=== PATIENT | male | born 1965 | race Caucasian/White ===

== ENCOUNTER 2017-05-10 12:05 | Inpatient (IN) | payer OTHER, MEDICARE ==
[~2017-05-10] VITALS: Ht 182.9 cm; Wt 177.8 kg
[~2017-05-10 12:05] MED LIST: ADVAIR 250-501 EACH INH; ASPIRIN81 M4 PO; ATORVASTATIN CA80 M1 PO; ATROVENT15 ML NASB; AUGMENTIN 875-1 EACH PO; BACTRIM DS TAB1 EACH PO; DELTASONE20 MG PO; GLUCOPHAGE1000 M1 PO; KLOR-CON 1010 ME1 PO; LANTUS SOL100 UNIT/1 SQ; LASIX20 M1 PO; LASIX40 M1 PO; NOVOLOG100 UNIT/2 SQ; PERCOCET 5-3251 EACH PO; PRINIVIL20 M1 PO; PROAIR HFA8.5 GM INH; SERTRALINE HCL50 MG PO
--- NOTE | 2017-05-10 12:55 | ED GENERAL ADULT ---
History of Present Illness General Chief Complaint: Lower Extremity Problems Stated Complaint: DIABETES, RIGHT FOOT/BIG TOE SWELLING/DECAY Source: patient Exam Limitations: no limitations Vital Signs & Intake/Output Vital Signs & Intake/Output Vital Signs Date Time Temp Pulse Resp B/P B/P Pulse O2 O2 Flow FiO2 Mean Ox Delivery Rate 05/13 0655 98.0 70 20 112/62 95 Room Air 05/12 2202 98.5 62 20 116/60 97 05/12 1458 98.3 68 20 108/60 95 Room Air ED Intake and Output 05/13 0000 05/12 1200 Intake Total 1100 1000 Output Total 2250 1100 Balance -1150 -100 Intake, IV 200 400 Intake, Oral 900 600 Number 1 Bowel Movements Output, Urine 2250 1100 Allergies Coded Allergies: No Known Allergies (05/10/17) Reconcile Medications Aspirin (Aspirin*) 81 MG TAB.CHEW 1 TAB PO DAILY HEART HEALTH (Reported) Atorvastatin Calcium 80 MG TABLET 1 TAB PO DAILY CHOLESTEROL (Reported) Fluticasone/Salmeterol (Advair 250-50 Diskus) 1 EACH BLST.W.DEV 1 PUF INH BID BREATHING PROBLEMS (Reported) Furosemide (Lasix) 40 MG TABLET 1 TAB PO DAILY WATER PILL (Reported) Insulin Glargine,Hum.rec.anlog (Lantus Solostar) 100 UNIT/ML (3 ML) INSULN.PEN 50 UNITS SQ Q12 DIABETES Lisinopril (Prinivil) 20 MG TABLET 1 TAB PO DAILY HEART (Reported) Metformin HCl (Glucophage) 1,000 MG TABLET 1 TAB PO BID DIABETES (Reported) Potassium Chloride (Klor-Con 10) 10 MEQ TABLET.ER 1 TAB PO DAILY SUPPLEMENT ( Reported) Sertraline HCl 50 MG TABLET 1 TAB PO DAILY MENTAL HEALTH (Reported) Triage Note: PT TO ED FOR C/C OF R GREAT TOE PAIN, DRAINAGE AND "FALLING APART." PT WAS SEEN AND ADMITTED AND LEFT AMA FROM [facility] YESTERDAY. PT CALLED DR. PALOMINO' OFFICE WHO TOLD HIM TO COME TO [facility]. DRAINAGE NOTED THROUGH SOCK IN TRIAGE, BUT PT DOES NOT WANT TO TAKE SOCK OFF IN TRIAGE. 103 FEVER LAST NIGHT, AND HIGH BLOOD SUGARS. PT REPORTS SYMPTOMS HAVE BEEN X 1 WEEK. Triage Nurses Notes Reviewed? yes Onset: Abrupt Duration: week(s): (1), constant, continues in ED, getting worse Timing: single episode today Injury Environment: home Severity: moderate, severe Severity Numbers: 7 No Modifying Factors: none Modifying Factors: Worsens With: movement. HPI: 51-year-old male past medical history of poorly controlled diabetes, hypertension, COPD, CHF, sleep apnea presents for evaluation of pain swelling to his right great toe. Patient states that he first noticed symptoms about one week ago. He states that the toe appears to be "rotting". He denies any trauma or known triggering events. He says that he went to [facility] yesterday where they attempted to admit him but he left AMA. He does state that he receive some antibiotics. He denies any chest pain shortness of breath or vomiting diarrhea. He does have numbness and tingling in his toes bilaterally. He denies any history of peripheral vascular disease. He does report that he had a fever of 103 last night. He is not taking any medicine for pain. Pain is worse with movement but he is able to walk. He reports redness and swelling spreading up the right lower extremity. (Mka Wu) Past History Travel History Traveled to [place] past 21 day No Medical History Any Pertinent Medical History? 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 hip, plate in head. Psychosocial History Who do you live with Patient/Self Services at Home None What is your primary language Hebrew Family History Family History, If Any: SON (The patient reports to have grown up in foster care. He was never adopted and does not know his family. He gets very upset when asked about family history.He has no family history). Relation not specified for: *No pertinent family history Hx Contributory? No (Mak Wu) Review of Systems Review of Systems Constitutional: Reports: no symptoms. EENTM: Reports: no symptoms. Respiratory: Reports: no symptoms. Cardiovascular: Reports: no symptoms. GI: Reports: no symptoms. Genitourinary: Reports: no symptoms. Musculoskeletal: Reports: see HPI, joint pain, joint swelling. Skin: Reports: see HPI, erythema, lesions. Neurological/Psychological: Reports: numbness, tingling. Hematologic/Endocrine: Reports: no symptoms. Immunologic/Allergic: Reports: no symptoms. All Other Systems: Reviewed and Negative (Mak Wu) Physical Exam Physical Exam General Appearance: well developed/nourished, no apparent distress, alert, awake , obese Head: atraumatic, normal appearance Eyes: Bilateral: normal appearance, PERRL, EOMI. Ears, Nose, Throat: normal pharynx, normal ENT inspection, hearing grossly normal Neck: normal inspection, supple, full range of motion Respiratory: normal breath sounds, chest non-tender, no respiratory distress, lungs clear Cardiovascular: regular rate/rhythm, normal peripheral pulses Peripheral Pulses: 2+ radial (R), 2+ radial (L) Gastrointestinal: normal bowel sounds, soft, non-tender, no organomegaly Back: normal inspection, normal range of motion, no vertebral tenderness Extremities: the right great toe is diffusely swollen and macerated. There is a large ulcerated lesion on the plantar aspect. There is surrounding erythema and diffuse soft tissue swelling of the foot. The erythema extends up the foot and into the lower leg. There is calf swelling and tenderness. Patient is able to move the toe. Sensory supply appears lost to the great toe and other toes. Cap refill less than 2 seconds. Neurologic/Psych: no motor/sensory deficits, awake, alert, oriented x 3, normal gait Skin: intact, normal color, warm/dry Lymphatic: no anterior cervical chuyita Core Measures ACS in differential dx? No CVA/TIA Diagnosis: No Sepsis Present: No Sepsis Focused Exam Completed? No (Mak Wu) Progress Differential Diagnoses I considered the following diagnoses in my evaluation of the patient: Plan of Care: Current Medications Sig/Wally Start time Last Medication Dose Stop Time Status Admin Furosemide 40 MG DAILY 05/13 1000 AC (Lasix) Insulin Detemir 3 UNITS BID 05/12 1000 AC 05/12 (Levemir) 211 Atorvastatin Calcium 80 MG 1700 05/11 1700 AC 05/12 (Lipitor) 1812 Insulin Aspart 0 TIDAC 05/11 1700 AC 05/13 (NovoLOG) 0824 Acetaminophen 650 MG Q4P PRN 05/11 1315 AC 05/12 (Tylenol) 211 Lisinopril 20 MG DAILY 05/11 1000 AC 05/12 (Prinivil) 0751 Sertraline HCl 50 MG DAILY 05/11 1000 AC 05/12 (Zoloft) 075 Budesonide/ 2 PUF BID 05/10 Formoterol Fumarate 2111 (Symbicort) Heparin Sodium 5,000 UNIT Q8 05/10 2199 AC 05/13 (Porcine) 0545 Dextrose/Sodium 1,000 ML Q20H 05/10 19405/12 Chloride 2335 (D5-Normal Saline) Aspirin 81 MG DAILY 05/10 1928 AC 05/12 (Aspirin) 075 Ampicillin Sodium/ 3,000 MG Q6 05/10 190 AC 05/13 Sulbactam Sodium 0546 (Unasyn) Sodium Chloride 100 ML (Normal Saline 0.9%) Laboratory Tests 05/12/17 0908: CBC w Diff NO MAN DIFF REQ, RBC 3.94 L, MCV 89.6, MCH 30.8, MCHC 34.4, RDW 13.4 , MPV 10.1, Gran % 55.7, Lymphocytes % 33.6, Monocytes % 6.2, Eosinophils % 3.5, Basophils % 1.0, Absolute Granulocytes 2.8, Absolute Lymphocytes 1.7, Absolute Monocytes 0.3, Absolute Eosinophils 0.2, Absolute Basophils 0.1 Patient seen and evaluated. He has a ulcerated lesion on his right lower extremity with surrounding erythema and soft tissue swelling. The erythema tracks up the leg. He has an elevated white blood cell counts elevated sedimentation rate and CRP. Spoke with Dr. Dee. He recommends getting an MRI and that admitting to the OR tomorrow. He recommends covering with antibiotics now. Patient was given Unasyn after cultures. MRI ordered. Patient was also given IV fluids due to mildly elevated lactic acid and elevated blood sugar. Also patient was given a dose of Unasyn for his elevated blood sugar. He has a negative anion gap. MRI shows evidence of osteomyelitis the distal aspect of the right first digit. Patient will go to the OR tomorrow with Dr. Dee. He'll be nothing by mouth after midnight. Patient required admission for IV antibiotics, IV fluids, serial labs, podiatry, case management, endocrine, bone biopsy/debridement. Case discussed with Dr. Borges she agrees. Diagnostic Imaging: Viewed by Me: Radiology Read, Ultrasound. Discussed w/RAD: Radiology Read, Ultrasound. Radiology Impression: PATIENT: JODY KAPADIA PRESENT AGE: 51 PATIENT ACCOUNT NO: [id number] : 65 LOCATION: [facility] ORDERING PHYSICIAN: Mak FALL SERVICE DATE: 05/10/17 EXAM TYPE: MRI - MRI-RT FOOT W/O GABI EXAMINATION: MRI FOOT WITHOUT CONTRAST, RIGHT CLINICAL INFORMATION: Right great toe ulcer. COMPARISON: Same day radiographs. TECHNIQUE: MRI without contrast is performed on the right forefoot. FINDINGS: There is a soft tissue defect along the plantar aspect of the distal great toe with underlying edema compatible with cellulitis. No abscess. The 1st distal phalanx is diffusely edematous. Fatty marrow is predominately preserved suggesting this is reactive marrow edema, with the exception of focal low signal and irregularity at the plantar aspect of the tuft likely representing a relatively small focus of osteomyelitis. There is a 1st MTP joint effusion and mild hallux sesamoid osteoarthritis. Moderate arthritic changes throughout the midfoot. There is extensive subcutaneous edema throughout the dorsum of the foot. There is edema throughout the intrinsic muscles of the foot likely representing denervation change, not uncommon in diabetic patients. IMPRESSION: The 1st distal phalanx is diffusely edematous, the majority of which is likely reactive. Osteomyelitis is suspected at the plantar aspect of the tuft. DICTATED BY: Gen Joy MD DATE/TIME DICTATED:05/10/171557 SUMMER INTERN: DUNCAN DATE/TIME TRANSCRIBED:05/10/171557 CONFIDENTIAL, DO NOT COPY WITHOUT APPROPRIATE AUTHORIZATION. <Electronically signed in Other Vendor System> SIGNED BY: Gen Joy MD 05/10/178, PATIENT: JODY KAPADIA PRESENT AGE: 51 PATIENT ACCOUNT NO: [id number] : 65 LOCATION: [facility] ORDERING PHYSICIAN: Mak FALL SERVICE DATE: 05/10/17 EXAM TYPE: US - US-DUPLEX VENOUS EXTREM UNI EXAMINATION: US TRIPLEX LOWER EXTREMITY, RIGHT CLINICAL INFORMATION: History of DVT with right lower extremity pain, discoloration, swelling and tenderness. COMPARISON: None TECHNIQUE: Color-flow triplex imaging with spectral analysis and compression Doppler were performed on the lower extremity. FINDINGS: Respiratory variation, normal compression and augmented flow are noted throughout the lower extremity. The visualized common femoral vein, superficial femoral vein, profunda femoral vein and popliteal vein show no evidence of deep venous thrombosis. Calf veins could not be visualized. There is no La's cyst. Multiple groin nodes are present the largest of which measure 1.5 x 2.9 x 0.7 cm and 2.3 x 3.6 x 1.0 cm. IMPRESSION: No evidence of deep venous thrombosis involving the lower extremity from the popliteal vein upwards. DICTATED BY: Julio Waters MD DATE/TIME DICTATED:05/10/171551 SUMMER INTERN:DUNCAN DATE/TIME TRANSCRIBED:05/10/171551 CONFIDENTIAL, DO NOT COPY WITHOUT APPROPRIATE AUTHORIZATION. <Electronically signed in Other Vendor System> SIGNED BY: Julio Waters MD 05/10/171635, PATIENT: JODY KAPADIA PRESENT AGE: 51 PATIENT ACCOUNT NO: [id number] : 65 LOCATION: [facility] ORDERING PHYSICIAN: Mak FALL SERVICE DATE: 05/10/17 EXAM TYPE: RAD - XRY-FOOT COMPLETE, R EXAMINATION: XR FOOT, RIGHT CLINICAL INFORMATION: Right great toe pain. Swelling. Ulceration lesion. COMPARISON: None TECHNIQUE: AP, lateral, and oblique views of the right foot. FINDINGS: Bones are osteopenic. There is soft tissue swelling of the great toe with a associated laceration. Underlying bone appears unremarkable. No discrete foci of osteolysis are identified indicate acute osteomyelitis. There is mild multifocal degenerative arthritis in the midfoot and in the interphalangeal joints. Small enthesopathic spurs are present at the Achilles tendon insertion and plantar fascial origin on the calcaneus. Soft tissues are diffusely swollen and edematous in the foot. IMPRESSION: Soft tissue swelling and ulceration of the great toe. No radiographic findings of underlying osteomyelitis. Consider correlation with MRI of the foot with and without contrast for additional sensitivity and specificity if warranted. DICTATED BY: Rory Trevizo MD DATE/ TIME DICTATED:05/10/171406 SUMMER INTERN:DUNCAN DATE/TIME TRANSCRIBED: 05/10/171406 CONFIDENTIAL, DO NOT COPY WITHOUT APPROPRIATE AUTHORIZATION. < Electronically signed in Other Vendor System> Initial ED EKG: normal sinus rhythm, NON-SPECIFIC INTRAVENTRICULAR CONDUNCTION DELAY, BORDERLINE INFERIOR Q WAVES Prior EKG: unchanged (Mak Wu) Departure Departure Disposition: STILL A PATIENT Condition: Stable Clinical Impression Primary Impression: Osteomyelitis Qualifiers: Osteomyelitis type: unspecified type Osteomyelitis location: foot Laterality: right Qualified Code: M86.9 - Osteomyelitis, unspecified Referrals: Nayeli ADAMS,Raleigh Duncan (PCP/Family) Departure Forms: Customer Survey General Discharge Information Admission Note Spoke With: Leslie ADAMS,Bettina Orlando Documentation of Exam: Documentation of any treatments & extenuating circumstances including Concerns Regarding Discharge (functional status, medication knowledge or non-compliance, living conditions, etc.) that warrant an admission rather than observation: IV antibiotics, IV fluids, serial labs, podiatry, case management, endocrine, bone biopsy/debridement] (aMk Wu) PA/VIDEO EFFECTS EDITOR Co-Sign Statement Statement: ED Attending supervision documentation- [X] I saw and evaluated the patient. I have also reviewed all the pertinent lab results and diagnostic results. I agree with the findings and the plan of care as documented in the PA's/VIDEO EFFECTS EDITOR's documentation. [X] I have reviewed the ED Record and agree with the PA's/VIDEO EFFECTS EDITOR's documentation. [] Additions or exceptions (if any) to the PAs/VIDEO EFFECTS EDITOR's note and plan are summarized below: [] (Katerina ADAMS,Massiel) Critical Care Note Critical Care Note Critical Care Time: non-applicable (Mak Wu)
[2017-05-10 13:13] LABS: ABSOLUTE BASOPHIL COUNT 0 /CUMM (0.0-0.2); ABSOLUTE EOSINOPHIL COUNT 0.2 /CUMM (0.0-0.7); ABSOLUTE GRANULOCYTE CT 8.7 /CUMM (1.4-6.5); ABSOLUTE MONOCYTE COUNT 0.6 /CUMM (0.10-0.60); BASOPHIL % 0.2 % (0.0-2.0); EOSINOPHIL % 1.7 % (0-5); GRANULOCYTE % 75.6 % (42.2-75.2); HEMATOCRIT 40.7 % (42-52); MEAN CORPUSCULAR HGB 30.8 PG (27.0-31.0); MEAN CORPUSCULAR HGB CONC 33.6 G/DL (33.0-37.0); MEAN CORPUSCULAR VOLUME 91.6 FL (80.0-94.0); MEAN PLATELET VOLUME 10.4 FL (7.4-10.4); PLATELET COUNT 181 /CUMM (130-400); RBC DISTRIBUTION WIDTH 13.5 % (11.5-14.5); RED BLOOD CELL CT 4.44 /CUMM (4.70-6.10); WHITE BLOOD CELL COUNT 11.5 /CUMM (4.8-10.8)
--- NOTE | 2017-05-10 14:12 | RADIOLOGY REPORT ---
EXAMINATION: XR FOOT, RIGHT CLINICAL INFORMATION: Right great toe pain. Swelling. Ulceration lesion. COMPARISON: None TECHNIQUE: AP, lateral, and oblique views of the right foot. FINDINGS: Bones are osteopenic. There is soft tissue swelling of the great toe with a associated laceration. Underlying bone appears unremarkable. No discrete foci of osteolysis are identified indicate acute osteomyelitis. There is mild multifocal degenerative arthritis in the midfoot and in the interphalangeal joints. Small enthesopathic spurs are present at the Achilles tendon insertion and plantar fascial origin on the calcaneus. Soft tissues are diffusely swollen and edematous in the foot. IMPRESSION: Soft tissue swelling and ulceration of the great toe. No radiographic findings of underlying osteomyelitis. Consider correlation with MRI of the foot with and without contrast for additional sensitivity and specificity if warranted.
--- NOTE | 2017-05-10 16:36 | ULTRASOUND REPORT ---
EXAMINATION: US TRIPLEX LOWER EXTREMITY, RIGHT CLINICAL INFORMATION: History of DVT with right lower extremity pain, discoloration, swelling and tenderness. COMPARISON: None TECHNIQUE: Color-flow triplex imaging with spectral analysis and compression Doppler were performed on the lower extremity. FINDINGS: Respiratory variation, normal compression and augmented flow are noted throughout the lower extremity. The visualized common femoral vein, superficial femoral vein, profunda femoral vein and popliteal vein show no evidence of deep venous thrombosis. Calf veins could not be visualized. There is no La's cyst. Multiple groin nodes are present the largest of which measure 1.5 x 2.9 x 0.7 cm and 2.3 x 3.6 x 1.0 cm. IMPRESSION: No evidence of deep venous thrombosis involving the lower extremity from the popliteal vein upwards.
--- NOTE | 2017-05-10 16:48 | MRI REPORT ---
EXAMINATION: MRI FOOT WITHOUT CONTRAST, RIGHT CLINICAL INFORMATION: Right great toe ulcer. COMPARISON: Same day radiographs. TECHNIQUE: MRI without contrast is performed on the right forefoot. FINDINGS: There is a soft tissue defect along the plantar aspect of the distal great toe with underlying edema compatible with cellulitis. No abscess. The 1st distal phalanx is diffusely edematous. Fatty marrow is predominately preserved suggesting this is reactive marrow edema, with the exception of focal low signal and irregularity at the plantar aspect of the tuft likely representing a relatively small focus of osteomyelitis. There is a 1st MTP joint effusion and mild hallux sesamoid osteoarthritis. Moderate arthritic changes throughout the midfoot. There is extensive subcutaneous edema throughout the dorsum of the foot. There is edema throughout the intrinsic muscles of the foot likely representing denervation change, not uncommon in diabetic patients. IMPRESSION: The 1st distal phalanx is diffusely edematous, the majority of which is likely reactive. Osteomyelitis is suspected at the plantar aspect of the tuft.
--- NOTE | 2017-05-10 17:06 | History & Physical ---
See Addendum Tiffany Layne MD 05/10/17 5156: General Information and HPI MD Statement: I have seen and personally examined JODY KAPADIA and documented this H&P. The patient is a 51 year old M who presented with a patient stated chief complaint of [right great toe swelling and pain]. Source of Information: patient Exam Limitations: no limitations History of Present Illness: 51-year-old male with past medical history of COPD, hypertension, traumatic brain injury, diabetes, congestive heart failure, obstructive sleep apnea on CPAP came for a and swelling of his great toe swelling for the past 1 week. Patient was in usual state of health until a week ago, found to have swelling of his right great toe with no pain. 2 days ago patient felt moderate to severe pain in his right great toe. Patient went to [facility] for the same but due to increased wake time in the emergency room he left at his medical advice. Not sure if he received any antibiotics during the ER visit. Today patient continued having pain in his right great toe and eventually decided to come to the emergency room. During the time of interview he was irritated that he was frequently interviewed regarding his current situation. He denies trauma to his legs, numbness, tingling sensation, decreased sensation, bilateral leg pain, shortness of breath, chest pain. Patient uses Advair for his COPD. Patient has never seen a software requirements engineer/sugar refinery supervisor for his diabetes. Patient lives alone and uses cane at home. Allergies/Medications Allergies: Coded Allergies: No Known Allergies (05/10/17) Home Med list Aspirin (Aspirin*) 81 MG TAB.CHEW 1 TAB PO DAILY HEART HEALTH (Reported) Atorvastatin Calcium 80 MG TABLET 1 TAB PO DAILY CHOLESTEROL (Reported) Fluticasone/Salmeterol (Advair 250-50 Diskus) 1 EACH BLST.W.DEV 1 PUF INH BID BREATHING PROBLEMS (Reported) Furosemide (Lasix) 40 MG TABLET 1 TAB PO DAILY WATER PILL (Reported) Insulin Glargine,Hum.rec.anlog (Lantus Solostar) 100 UNIT/ML (3 ML) INSULN.PEN 50 UNITS SQ Q12 DIABETES Lisinopril (Prinivil) 20 MG TABLET 1 TAB PO DAILY HEART (Reported) Metformin HCl (Glucophage) 1,000 MG TABLET 1 TAB PO BID DIABETES (Reported) Potassium Chloride (Klor-Con 10) 10 MEQ TABLET.ER 1 TAB PO DAILY SUPPLEMENT ( Reported) Sertraline HCl 50 MG TABLET 1 TAB PO DAILY MENTAL HEALTH (Reported) Compliance With Home Meds: FAIR Past History Travel History Traveled to [place] past 21 day No Medical History Neurological: TBI EENT: NONE Cardiovascular: CHF, hypertension, hyperlipidemia Respiratory: copd ON CPAP AT NIGHT Gastrointestinal: NONE Hepatic: NONE Renal: NONE Musculoskeletal: NONE Psychiatric: NONE Endocrine: diabetes Blood Disorders: NONE Cancer(s): NONE GRAIN MILL 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 hip, plate in head. Past Family/Social History Family History Relations & Conditions if any SON (The patient reports to have grown up in foster care. He was never adopted and does not know his family. He gets very upset when asked about family history.He has no family history). Relation not specified for: *No pertinent family history Psychosocial History Where do you live? Home Who Do You Live With? self Services at Home: None Primary Language: Indian Smoking Status: Current Everyday Smoker ETOH Use: occasional use Illicit Drug Use: denies illicit drug use Functional Ability ADLs Independent: dressing, eating, toileting, bathing. Ambulation: independent IADLs Independent: shopping, housework, finances, food prep, telephone, transportation , medication admin. Review of Systems Review of Systems Constitutional: Reports: no symptoms. Cardiovascular: Reports: no symptoms. Respiratory: Reports: no symptoms. GI: Reports: no symptoms. Genitourinary: Reports: no symptoms. Musculoskeletal: Reports: no symptoms. Comments Complaints of pain, swelling of his right great toe for the past 1 week. Exam & Diagnostic Data Last 24 Hrs of Vital Signs/I&O Vital Signs Date Time Temp Pulse Resp B/P B/P Pulse O2 O2 Flow FiO2 Mean Ox Delivery Rate 05/10 1944 98.5 84 20 116/70 94 05/10 1742 97.7 69 18 146/69 96 Room Air 05/10 1550 98.8 76 18 138/58 95 Room Air 05/10 1309 96 Room Air 05/10 1217 97.7 88 15 124/75 99 Room Air Room Air Intake & Output 05/10 1600 05/10 0800 05/10 0000 Intake Total Output Total Balance Patient 320 lb Weight Weight Reported by Patient Measurement Method Physical Exam General Appearance Alert, Oriented X3, Cooperative, No Acute Distress Neck Supple, No JVD Cardiovascular Regular Rate, Normal S1, Normal S2, No Murmurs Lungs B/L WHEEZE Abdomen Soft, No Tenderness, No Hepatospenomegaly Neurological Normal Speech, Strength at 5/5 X4 Ext, Normal Tone, Sensation Intact Extremities RT GREAT TOE GANGRENE WITH OPEN WOUND WITH NO DISCHARGE Body Front and Back (Adult) 1) RT GREAT TOE GANGRENE WITH OPEN WOUND 2) redenss and warmth 3) redness and chronic venous changes Diagnostic Data EKG Results Sinus rhythm with a heart rate of 80. Normal axis Other Results Foot x-ray Soft tissue swelling and ulceration of the great toe. No radiographic findings of underlying osteomyelitis. Consider correlation with MRI of the foot with and without contrast for additional sensitivity and specificity if warranted. MRI foOT The 1st distal phalanx is diffusely edematous, the majority of which is likely reactive. Osteomyelitis is suspected at the plantar aspect of the tuft Assessment/Plan Assessment: 51-year-old male with past medical history of COPD, hypertension, traumatic brain injury, diabetes, congestive heart failure, obstructive sleep apnea on CPAP came for a and swelling of his great toe swelling for the past 1 week. Patient found to have right great toe osteomyelitis and admitted in general medical floor for further evaluation and management. Admission vitals Temperature 98.8, pulse rate 76, respiratory rate 18, blood pressure 138/58 saturating 97 at room air Admission labs WBC 11.5, hemoglobin 13.6, hematocrit 40.7, ESR 80, sodium 134, potassium 4.3, BUN 18, creatinine 0.6, glucose 456, serum osmolality 302, lactic acid 2.1, alkaline phosphatase 196, C-reactive protein 7.8, troponin I 0.01, acetone level negative. Imaging Lower extremity Doppler IMPRESSION: No evidence of deep venous thrombosis involving the lower extremity from the popliteal vein upwards. X-ray Soft tissue swelling and ulceration of the great toe. No radiographic findings of underlying osteomyelitis. Consider correlation with MRI of the foot with and without contrast for additional sensitivity and specificity if warranted MRI foot The 1st distal phalanx is diffusely edematous, the majority of which is likely reactive. Osteomyelitis is suspected at the plantar aspect of the tuft. ED treatment Normal saline bolus 1 L, Unasyn 3 mg once, NovoLog insulin 15 units subcutaneous. Assessment and plan Right great toe distal phalanx suspicion for osteomyelitis. * Patient admitted in general medical floor and podiatry is informed who suggested to keep him nothing by mouth for possible dEBRIDEMENT/amputation of his right great toe. Patient is started on Unasyn 3 g IV every 6. We will place a vascular consult to rule out any peripheral vascular disease. Patient has bilateral pitting pedal edema. Bilateral lower extremity pulses felt. Patient was recently admitted for left lower extremity cellulitis and treated for the same. Bilateral leg appear red with right leg more compatible the left. Right leg-redness up to the level of knee, feels warm. Patient is a competent of cellulitis secondary due to osteomyelitis. * Diabetes-sliding scale NovoLog insulin. * COPD/AYLEEN-TRC nebulization and continue using CPAP at night. We will continue all his home medication except Lasix. * Code-full code * Diet-nothing by mouth for possible procedure tomorrow * DVT prophylaxis-subcutaneous heparin As Ranked By This Provider Problem List: 1. Cellulitis 2. Osteomyelitis Qualifiers Osteomyelitis type: unspecified type Osteomyelitis location: foot Laterality: right Qualified Code: M86.9 - Osteomyelitis, unspecified Core Measures/Misc (11/06) Acute Coronary Syndrome ACS Diagnosis: No Congestive Heart Failure Congestive Heart Failure Diagnosis No Cerebrovascular Accident CVA/TIA Diagnosis: No VTE (View Protocol) VTE Risk Factors Age>40 No Mechanical VTE Prophylaxis d/t Other No VTE Pharm Prophylaxis d/t Other Sepsis (View protocol) Sepsis Present: No Raisa Cancino MD 05/10/17 4056: Resident Review Statement Resident Statement: examined this patient, discussed with regulatory intern, agreed with regulatory intern Other Findings: Patient is a 51-year-old male presented with right foot swelling,High fever, high blood sugars. History is taken from the patient, it was very difficult to get the history as he was very frustrated with the medical system and he does not wanted to repeat it again. Basically he told that he had this swelling in his right leg since couple of days around a week and he did not noticed until 2 days ago when he started having swelling and has right great toe, after he took the shower. Day before yesterday he started having slight fever yesterday he had fever of 103. He does not have any transport so he called his friend and went to the [facility]. It took a long time and he was told that he needed to be get admitted but he refused and come back to the home. He called his primary care doctor's office Jomar Tyler MD as he was not in the office so the nurse over there advised him to come [facility] so he is here for further evaluation and management. Currently at the time of examination he denies for any fever, chills, shortness of breath, chest pain, palpitation, abdominal pain, diarrhea, constipation, knee pain, hip pain, trauma, fall. Past medical history- Hypertension Hyperlipidemia Diabetes Depression COPD CHF Sleep Apnoea on CPAP ED course - Vital signs temperature 97.7, pulse 88, respiratory 18, blood pressure 124/75, SPO2 99% on room air. On physical examination -patient was morbidly obese, facial swelling, short and thick neck, chest -bilateral generalized expiratory crackles, heart S1-S2 normal , abdomen distended, bilateral lower extremities edema present, right lower extremity -erythema, till lower 2/3 of lee, there was tenderness on the foot anterior one third, able to move the ankle and first metatarsophalangeal joint, complete great toe was having callus, ulcer, yellowish abscess draining from the ulcer. EKG - NSR, HR -79, Blood workup showed hemoglobin 13.6, WBC 11.5, MCV 91.6, platelet 181, 75.6, lymphocytes 17.2, absolute granulocyte 8.7, ESR 80, serum sodium 134, potassium 4.3, chloride 96, anion gap 12, BUN 18, creatinine 0.6, glucose 456, serum osmolality 302, lactic acid 2.1, calcium 9.5, total bili 0.8, AST 30, ALT 35, alkaline phosphatase 9196, troponin I less than 0.01, C-reactive protein 7.8 , serum acetone negative, MRI of the foot -full distal phalanx is diffusely edematous, likely reactive, osteomyelitis is suspected in the plantar aspect of the tuft. medication - he was given Unasyn and insulin, sodium chloride. Assessment and plan -patient is 51-year-old male with multiple medical problem, uncontrolled diabetes, noncompliant presented with chief complaints of redness, erythema, ulcers on the right foot along with high-grade fever. MRI of the foot does show evidence of osteomyelitis in the plantar aspect, we will get the opinion from the software requirements engineer for further evaluation and management. We will keep patient n.p.o. for possible amputation tomorrow. Right foot osteomyelitis - * We will admit the patient to general medicine floor * We will call the podiatry to get their opinion * We will prepare patient for possible amputation tomorrow * We will start patient on injection Unasyn 3 g IV 6 hourly * We will keep him n.p.o. from mid night * Please have vascular consult for further evaluation of peripheral vascular disease * DVT prophylaxis -heparin Type 2 diabetes - * Keep n.p.o. after midnight * Blood sugar charting every 6 hourly * NovoLog according to the sliding scale COPD, obstructive sleep apnea * TRC/nebulization * CPAP at night Chronic medical condition -hypertension, depression, hyperlipidemia * Will hold the Lasix for now * Tomorrow we will continue tablet Zoloft, lisinopril, atorvastatin * We will call his pharmacy to confirm the medication and doses Diet -carbohydrate type II diet, keep n.p.o. after midnight DVT prophylaxis -heparin 5000 international units subcu every 8 hourly CODE STATUS - full code Leslie ADAMS,Bettina 05/10/17 1727: Attending Review Statement Attending Statement Attending MD Statement: examined this patient, discuss w/resident/PA/ADMINISTRATIVE HEARING OFFICER, agreed w/resident/PA/ADMINISTRATIVE HEARING OFFICER, reviewed EMR data (avail), discussed with nursing, reviewed images Attending Assessment/Plan: 51-year-old male with past medical history of diabetes, hyperlipidemia, hypertension who is here with a left great toe osteomyelitis with a surrounding cellulitis. Patient has an obvious macerated left great toe with a plantar ulcer with surrounding erythema and inflammation around it. He also has a leukocytosis of 11,000. At this point will bring him into GEN med, get blood cultures and start him on IV Unasyn to cover broad-spectrum. His MRI is positive for and osteo-and podiatry was contacted by the ER. Dr. Dee has said he'll take him to the OR tomorrow for debridement. We'll hold off on the metformin, put him on insulin with sliding scale. Give him DVT prophylaxis
--- NOTE | 2017-05-10 17:27 | Admission Certification ---
Admission Certification Certification Statement - As attending physician, I certify that at the time of - admission, based on clinical presentation, severity of - symptoms, need for further diagnostic testing and - therapeutic interventions, and risk of adverse outcomes - without in-hospital treatment, in my clinical assessment, - this patient requires an acute hospital stay for a minimum - of two nights or longer. I have also considered psychsocial - factors such as support system, advanced age, financial - issues, cognitive issues, and failed out-patient treatments, - past re-admission history, safety of patient, and lack of - compliance as applicable. Specific rationale supporting this admission is: Diabetic left great toe osteomyelitis with cellulitis.
[2017-05-10 19:44] VITALS: BP 116/70
[2017-05-10 21:55] VITALS: BP 114/70
[2017-05-10 21:57] VITALS: BP 118/60
[2017-05-11 06:52] VITALS: BP 120/78
[2017-05-11 08:34] LABS: ABSOLUTE BASOPHIL COUNT 0 /CUMM (0.0-0.2); ABSOLUTE EOSINOPHIL COUNT 0.2 /CUMM (0.0-0.7); ABSOLUTE GRANULOCYTE CT 5.3 /CUMM (1.4-6.5); ABSOLUTE MONOCYTE COUNT 0.5 /CUMM (0.10-0.60); BASOPHIL % 0.4 % (0.0-2.0); EOSINOPHIL % 2.9 % (0-5); HEMATOCRIT 35.9 % (42-52); MEAN CORPUSCULAR HGB 30.9 PG (27.0-31.0); MEAN CORPUSCULAR HGB CONC 34.2 G/DL (33.0-37.0); MEAN CORPUSCULAR VOLUME 90.4 FL (80.0-94.0); MEAN PLATELET VOLUME 10.5 FL (7.4-10.4); PLATELET COUNT 160 /CUMM (130-400); RBC DISTRIBUTION WIDTH 13.3 % (11.5-14.5); RED BLOOD CELL CT 3.97 /CUMM (4.70-6.10); WHITE BLOOD CELL COUNT 8.1 /CUMM (4.8-10.8)
--- NOTE | 2017-05-11 08:52 | PN- Housestaff ---
Roverto ADAMS,Tiffany 05/11/17 0852: Subjective Follow-up For: Right great toe osteomyelitis Complaints: no complaints Subjective: Patient seen and examined at bedside. No overnight events, no complaints. He denies pain, numbness, tingling sensation, weakness, shortness of breath. He said he would like to have his "coffee"fter the surgery. Review of Systems Constitutional: Reports: see HPI. Objective Last 24 Hrs of Vital Signs/I&O Vital Signs Date Time Temp Pulse Resp B/P B/P Pulse O2 O2 Flow FiO2 Mean Ox Delivery Rate 05/11 1405 98.6 64 20 118/80 94 Room Air 05/11 1050 Room Air 05/11 0652 98.6 63 20 120/78 93 Room Air 05/11 0000 CPAP 05/10 215 98.6 75 20 118/60 95 05/10 2155 98.4 85 20 114/70 95 05/10 1944 98.5 84 20 116/70 94 05/10 1742 97.7 69 18 146/69 96 Room Air Intake & Output 05/11 1600 05/11 0800 05/11 0000 Intake Total 317 460 5993 Output Total 550 1675 Balance -150 -1275 1560 Intake, IV 621 028 9291 Intake, Oral 360 Output, Urine 550 1675 Patient 322 lb 378 lb Weight Weight Bed scale Measurement Method Physical Exam General Appearance: Alert, Oriented X3, Cooperative, No Acute Distress Cardiovascular: Normal S1, Normal S2, No Murmurs Lungs: Normal Air Movement Abdomen: Soft, No Tenderness, No Hepatospenomegaly Extremities: RIGHT GREAT TOE ULCERATION WITH BLACKISH NECROSIS Current Medications: Current Medications Sig/Wally Start time Last Medication Dose Route Stop Time Status Admin Acetaminophen 1,000 MG Q6H 05/11 1400 AC N/A 1 UNIT IV 05/12 0814 Acetaminophen 650 MG Q4P PRN 05/11 1315 AC PO Ampicillin Sodium/ 3,000 MG Q6 05/10 1906 AC 05/11 Sulbactam Sodium IV 1230 Sodium Chloride 100 ML Aspirin 81 MG DAILY 05/10 1929 AC 05/10 PO 2044 Atorvastatin Calcium 80 MG 1700 05/11 1700 AC PO Budesonide/ 2 PUF BID 05/10 220 AC 05/11 Formoterol Fumarate INH 1000 Dextrose/Sodium 1,000 ML Q20H 05/10 1945 AC 05/10 Chloride IV 2048 Dextrose/Water 1,000 ML Q20H 05/10 1930 DC IV Heparin Sodium 5,000 UNIT Q8 05/10 2200 AC 05/11 (Porcine) SC 0636 Insulin Aspart 0 TIDAC 05/11 1700 AC SC Insulin Aspart 0 TIDAC 05/11 0800 CAN SC Insulin Aspart 15 UNITS ONCE ONE 05/10 1645 DC 05/10 SC 05/10 1646 1849 Insulin Human Regular 8 UNITS .STK-MED ONE 05/11 0635 DC IV 05/11 0636 Insulin Human Regular 12 UNITS .STK-MED ONE 05/11 0054 DC IV 05/11 0055 Insulin Human Regular 0 Q6 05/10 1935 DC 05/11 SC 1330 Lisinopril 20 MG DAILY 05/11 1000 AC PO Lorazepam 1 MG ONCE ONE 05/11 1315 DC 05/11 IV 05/11 1316 1359 Patient Medication 1 ED ONE ONE 05/11 1145 DC 05/11 Teaching ED 05/11 1146 1331 Sertraline HCl 50 MG DAILY 05/11 1000 AC PO Last 24 Hrs of Lab/Jorgito Results Last 24 Hrs of Labs/Mics: Laboratory Tests 05/11/17 0744: Anion Gap 10, Estimated GFR > 60, BUN/Creatinine Ratio 32.0 H, CBC w Diff NO MAN DIFF REQ, RBC 3.97 L, MCV 90.4, MCH 30.9, MCHC 34.2, RDW 13.3, MPV 10.5 H, Gran % 66.0, Lymphocytes % 24.4, Monocytes % 6.3, Eosinophils % 2.9, Basophils % 0.4, Absolute Granulocytes 5.3, Absolute Lymphocytes 2.0, Absolute Monocytes 0.5 , Absolute Eosinophils 0.2, Absolute Basophils 0 05/10/17 1654: Lactic Acid 1.4 Assessment/Plan Assessment: 51-year-old male with past medical history of COPD, hypertension, traumatic brain injury, diabetes, congestive heart failure, obstructive sleep apnea on CPAP came for a and swelling of his great toe swelling for the past 1 week. Patient found to have right great toe osteomyelitis and admitted in general medical floor for further evaluation and management. Assessment and plan Right great toe distal phalanx suspicion for osteomyelitis. * Patient will be seen by podiatry and decided for dEBRIDEMENT/amputation of his right great toe. Patient is on Unasyn 3 g IV every 6. We will be seen by vascular consult to rule out any peripheral vascular disease. She hadn't had right lower extremity arterial Doppler which showed peripheral vascular disease. We'll follow with vascular surgery. Patient has bilateral pitting pedal edema. Bilateral lower extremity pulses felt. Patient was recently admitted for left lower extremity cellulitis and treated for the same. Right leg-redness up to the level of knee, feels warm improving. * Diabetes-sliding scale NovoLog insulin. * COPD/AYLEEN-TRC nebulization and continue using CPAP at night. We will continue all his home medication except Lasix. * Code-full code * Diet-nothing by mouth for possible procedure tomorrow * DVT prophylaxis-subcutaneous heparin Problem List: 1. Osteomyelitis Pain Ratin Pain Location: none Pain Goal: Remain pain free Pain Plan: tylenol Tomorrow's Labs & Rationales: cbc,bep Zaid [place] 05/11/17 1228: Attending MD Review Statement Attending Statement Attending MD Statement: examined this patient, discuss w/resident/PA/VP INTEGRITY, agreed w/resident/PA/VP INTEGRITY, discussed with family, reviewed EMR data (avail), discussed with nursing, discussed with case mgmt, reviewed images, amended to note Attending Assessment/Plan: 51-year-old male with past medical history of diabetes, hyperlipidemia, hypertension who is here with a left great toe osteomyelitis with a surrounding cellulitis. Patient has an obvious macerated left great toe with a plantar ulcer with surrounding erythema and inflammation around it. Admit to gen/med. F/u blood cultures and start him on IV Unasyn to cover broad- spectrum. MRI positive for OM. Plan for OR today with podiatry. Continue insulin with sliding scale. Obtain USG aretrial doppler to assess peripheral circulation. Gi/DVT prophylaxis.
--- NOTE | 2017-05-11 11:17 | ULTRASOUND REPORT ---
EXAMINATION: US DUPLEX LOWER EXTREMITY ARTERY/GRAFT LIMITED, RIGHT CLINICAL INFORMATION: 51-year-old male with pain and swelling of right great toe. COMPARISON: None TECHNIQUE: Sonographic imaging of major vessels of the right lower extremity was performed using a linear 9 MHz transducer. Grayscale imaging and pulsed color Doppler imaging with spectral waveform analysis was performed. FINDINGS: Common femoral artery is widely patent and has triphasic waveform, peak systolic velocity of 156 cm/sec. Profunda femoris artery, normal waveform, peak velocity of 88 cm/sec. SFA exhibits triphasic waveforms, peak systolic velocities of 128, 97 and 110 cm/sec in the proximal, mid and distal thigh, respectively. Popliteal artery is widely patent and exhibits peak systolic velocities of 78 cm/sec, proximally and 82 cm/sec, distally. Below level of the knee, the examined vessels exhibit high acceleration, monophasic waveforms, suggesting presence of hemodynamically significant disease. Posterior tibial artery of the proximal, mid and distal leg has peak systolic velocities of 86, 89 and 97 cm/sec, respectively. Anterior tibial artery of the proximal, mid and distal leg has peak systolic velocities of 147, 94 and 96 cm/sec, respectively. Dorsalis pedis artery has high acceleration, monophasic flow with peak velocity of 94 cm/sec. Within the mid to upper leg, peroneal artery is not identified and, therefore, might be occluded. IMPRESSION: Doppler imaging findings suggest presence of peripheral vascular disease below level of the knee, and the peroneal artery is not identified (might be occluded). For a more complete anatomic assessment of the peripheral vessels, CT angiography-runoff examination could be performed. Also, in order to further evaluate the severity of peripheral vascular disease, NNAMID measurements and pulse volume recordings may be obtained at a dedicated vascular lab.
[2017-05-11 14:05] VITALS: BP 118/80
--- NOTE | 2017-05-11 17:03 | Cons- Vascular Surgery ---
Imelda Mack 05/11/17 1652: General Information and HPI Consulting Request Date of Consult: 05/11/17 Requested By: Zaid France MD Reason for Consult: Right great toe gangrene Source of Information: patient Exam Limitations: no limitations History of Present Illness: 51-year-old male with past medical history of COPD, hypertension, traumatic brain injury, diabetes, congestive heart failure, obstructive sleep apnea on CPAP came for a and swelling of his great toe swelling for the past 1 week. Patient was in usual state of health until a week ago, found to have swelling of his right great toe with no pain. 2 days ago patient felt moderate to severe pain in his right great toe. Patient went to [facility] for the same but due to increased wait time in the emergency room he left against medical advice. It is unknown if he received any antibiotics during the ER visit. Patient continues having pain in his right great toe and eventually decided to come to the emergency room. He denies trauma to his legs, numbness, tingling sensation , decreased sensation, bilateral leg pain, shortness of breath, chest pain. Patient uses Advair for his COPD. Patient has never seen a ethnographic materials conservator/ poultry pathologist for his diabetes. Patient lives alone and uses cane at home. Vascular surgery has been consulted to rule out ischemia related to peripheral vascular disease. Allergies/Medications Allergies: Coded Allergies: No Known Allergies (05/10/17) Home Med List: Aspirin (Aspirin*) 81 MG TAB.CHEW 1 TAB PO DAILY HEART HEALTH (Reported) Atorvastatin Calcium 80 MG TABLET 1 TAB PO DAILY CHOLESTEROL (Reported) Fluticasone/Salmeterol (Advair 250-50 Diskus) 1 EACH BLST.W.DEV 1 PUF INH BID BREATHING PROBLEMS (Reported) Furosemide (Lasix) 40 MG TABLET 1 TAB PO DAILY WATER PILL (Reported) Insulin Glargine,Hum.rec.anlog (Lantus Solostar) 100 UNIT/ML (3 ML) INSULN.PEN 50 UNITS SQ Q12 DIABETES Lisinopril (Prinivil) 20 MG TABLET 1 TAB PO DAILY HEART (Reported) Metformin HCl (Glucophage) 1,000 MG TABLET 1 TAB PO BID DIABETES (Reported) Potassium Chloride (Klor-Con 10) 10 MEQ TABLET.ER 1 TAB PO DAILY SUPPLEMENT ( Reported) Sertraline HCl 50 MG TABLET 1 TAB PO DAILY MENTAL HEALTH (Reported) Past History Medical History Blood Transfusion Hx: Yes Neurological: TBI EENT: NONE Cardiovascular: CHF, hypertension, hyperlipidemia Respiratory: copd ON CPAP AT NIGHT Gastrointestinal: NONE Hepatic: NONE Renal: NONE Musculoskeletal: NONE Psychiatric: NONE Endocrine: diabetes Blood Disorders: NONE Cancer(s): NONE DISINTEGRATOR/Reproductive: NONE Surgical History Pertinent Surgical History: extensive hardware including bilat knees, l. hip, plate in head. Family History Relations & Conditions If Any: SON (The patient reports to have grown up in foster care. He was never adopted and does not know his family. He gets very upset when asked about family history.He has no family history). Relation not specified for: *No pertinent family history Psychosocial History Where Do You Live? Home Who Do You Live With? self Services at Home: None Primary Language: Polish Smoking Status: Current Everyday Smoker ETOH Use: occasional use Illicit Drug Use: denies illicit drug use Functional Ability ADLs Independent: dressing, eating, toileting, bathing. Ambulation: independent IADLs Independent: shopping, housework, finances, food prep, telephone, transportation , medication admin. Review of Systems Review of Systems: See H&P Exam & Diagnostic Data Vital Signs and I&O Vital Signs Date Time Temp Pulse Resp B/P B/P Pulse O2 O2 Flow FiO2 Mean Ox Delivery Rate 05/11 1405 98.6 64 20 118/80 94 Room Air 05/11 1050 Room Air 05/11 0652 98.6 63 20 120/78 93 Room Air 05/11 0000 CPAP 05/10 2157 98.6 75 20 118/60 95 05/10 2155 98.4 85 20 114/70 95 05/10 1944 98.5 84 20 116/70 94 05/10 1742 97.7 69 18 146/69 96 Room Air Intake & Output 05/11 1600 05/11 0800 05/11 0000 05/10 1600 05/10 0800 05/10 0000 Intake Total 692 007 2871 Output Total 550 1675 Balance -150 -1275 1560 Intake, IV 215 413 8820 Intake, Oral 360 Output, Urine 550 1675 Patient 322 lb 378 lb 320 lb Weight Weight Bed scale Reported by Patient Measurement Method Physical Exam: General: Alert and oriented x3, no acute distress Extremities: Bilateral peripheral edema noted, 2+ pitting to bilateral lower extremities. Right great toe bandage in place, dry presently. Erythema noted through out foot extending proximally along anterior aspect of lee, clear line of demarcation drawn, erythema extends past line slightly at the present time. SKin warm and dry. Distal pulses are palpable. Assessment/Plan Assessment/Plan 51-year-old male with past medical history of COPD, hypertension, traumatic brain injury, diabetes, congestive heart failure, obstructive sleep apnea on CPAP came for a and swelling of his great toe swelling for the past 1 week. Patient found to have right great toe osteomyelitis and admitted in general medical floor for further evaluation and management. Patient evaluated by podiatry who is taking him to OR today for DEBRIDEMENT/ amputation of his right great toe. Patient has been started on Unasyn 3 g IV every 6 hours Vascular surgery will contiue to follow patient. Distal pulses palpable presently. Duplex ultrasound of RLE shows evidence of peripheral vascular disease. Will consider CTA with runoff if clinical condition worsens. This case has been discussed with Dr. Gasca, Dr. Resendez to see patient. Consult Acknowledgment - Thank you for your consult request. Adam Resendez 05/12/17 0780: Assessment/Plan Consult Acknowledgment - Thank you for your consult request. Attending MD Review Statement Attending Statement Attending MD Statement: examined this patient, discuss w/resident/PA/COMBINED RAIL OPERATOR Attending Assessment/Plan: 51-year-old man who is diabetic and active smoker presented with right foot infection. He underwent I&D with Dr. Dee. He has palpable pedal pulses. CTA of abdomen and pelvis performed runoffs showed no evidence of significant arterial stenosis. From the vascular surgery standpoint, no intervention is necessary at this time. Thank you
--- NOTE | 2017-05-11 17:37 | Operative Report ---
Operative/Inv Procedure Report Surgery Date: 05/11/17 Name of Procedure: 1 open incision and drainage deep to the deep fascia with exposure of the extensor and flexor tendon and tendon sheath multiple sites right foot 2 bone biopsy right foot 3 intraoperative administration of ankle block anesthesia 4 excisional debridement Pre-Operative Diagnosis: 1 open necrotic wound right foot 2 osteomyelitis right foot Post-Operative Diagnosis: The same Estimated Blood Loss: less than 50ml Surgeon/Mathematics Lecturer: SARA DIEHL DPM Anesthesia: moderate sedation, block Operative/Procedure Note Note: After obtaining informed consent the patient was brought to the operating room and placed on the operating table in the supine position. The patient isn't securely fastened to the operating table utilizing safety belt. After administration of IV sedation, 10 mL of 0.5% Marcaine plain was infiltrated about the patient's right ankle. The right foot and ankle within scrubbed prepped and draped in usual aseptic manner. Attention directed to the right foot, where a large full-thickness necrotic was identified. A 15 blade visualized sharply revised skin margins. Dissection was then carried down deep to the deep fascia with exposure of the extensor and flexor tendon and tendon sheath multiple sites right foot. The dissection was then carried down proximally to the level of the interphalangeal joint where the capsular ligamentous structures were sectioned and the digit was disarticulated from the joint. Specimen was harvested for both microbiologic and pathologic inspection. Nipple was then irrigated with 3 L of normal sterile saline infusion 50,000 units of bacitracin. Following this, the foot was redraped and the surgeon's top gloves were changed clean gloves. Any bleeding vessels identified were cauterized or ligated as encountered. Nipple was then packed with half-inch iodoform and 3-0 nylon retention sutures were placed in the flaps. The foot was dressed with Xeroform 4 x 4's Kerlix and an Jefry wrap. The patient noted tolerable to procedure and anesthesia well and the patient was transferred from the operative room to recovery with vital signs stable.
[2017-05-11 18:30] VITALS: BP 116/80
[2017-05-11 22:39] VITALS: BP 100/56
[2017-05-12 06:48] VITALS: BP 118/76
--- NOTE | 2017-05-12 07:48 | PN- Housestaff ---
Roverto ADAMS,Tiffany 05/12/17 0747: Subjective Follow-up For: rt great toe osteomyelitis Subjective: Patient seen and examined at bedside. Patient having this prick was. No overnight events/complaints. He denies pain in his right great toe, weakness, or decreased sensation, numbness, tingling sensation. Review of Systems Constitutional: Reports: see HPI. Objective Last 24 Hrs of Vital Signs/I&O Vital Signs Date Time Temp Pulse Resp B/P B/P Pulse O2 O2 Flow FiO2 Mean Ox Delivery Rate 05/12 0751 98.1 64 20 118/76 05/12 0648 98.1 59 20 118/76 95 CPAP 05/11 2239 98.5 67 24 100/56 91 CPAP 05/11 1830 98.5 72 20 116/80 95 Room Air 05/11 1405 98.6 64 20 118/80 94 Room Air Intake & Output 05/12 1600 05/12 0800 05/12 0000 Intake Total 1000 1000 Output Total 1100 400 Balance -100 600 Intake, IV 400 400 Intake, Oral 600 600 Output, Urine 1100 400 Physical Exam General Appearance: Alert, Oriented X3, Cooperative, No Acute Distress HEENT: PERRLA, EOMI Cardiovascular: Normal S1, Normal S2, No Murmurs Lungs: Normal Air Movement Abdomen: Soft, No Tenderness, No Hepatospenomegaly Extremities: right great toe-covered and warps. No evidence of bleeding Current Medications: Current Medications Sig/Wally Start time Last Medication Dose Route Stop Time Status Admin Acetaminophen 1,000 MG Q6H 05/11 1400 DC 05/12 N/A 1 UNIT IV 05/12 0814 0750 Acetaminophen 650 MG Q4P PRN 05/11 1315 AC PO Ampicillin Sodium/ 3,000 MG Q6 05/10 1906 AC 05/12 Sulbactam Sodium IV 1149 Sodium Chloride 100 ML Aspirin 81 MG DAILY 05/10 1929 AC 05/12 PO 0751 Atorvastatin Calcium 80 MG 1700 05/11 1700 AC 05/11 PO 191 Budesonide/ 2 PUF BID 05/10 2199 AC 05/12 Formoterol Fumarate INH 0751 Dextrose/Sodium 1,000 ML Q20H 05/10 1945 AC 05/11 Chloride IV 1916 Heparin Sodium 5,000 UNIT Q8 05/10 220 AC 05/12 (Porcine) SC 0522 Insulin Aspart 0 TIDAC 05/11 1700 AC 05/12 SC 1150 Insulin Detemir 3 UNITS BID 05/12 1000 AC 05/12 SC 0756 Ketamine HCl 50 MG .STK-MED ONE 05/11 1652 DC IM 05/11 1653 Lisinopril 20 MG DAILY 05/11 1000 AC 05/12 PO 0751 Meperidine HCl 50 MG .STK-MED ONE 05/11 1737 DC IM 05/11 1738 Midazolam HCl 5 MG .STK-MED ONE 05/11 1652 DC IM 05/11 1653 Morphine Sulfate 4 MG .STK-MED ONE 05/11 1737 DC IM 05/11 1738 Patient Medication 1 ED ONE ONE 05/12 1345 DC Teaching ED 05/12 1346 Sertraline HCl 50 MG DAILY 05/11 1000 AC 05/12 PO 0752 Last 24 Hrs of Lab/Jorgito Results Last 24 Hrs of Labs/Mics: Laboratory Tests 05/12/17 0908: CBC w Diff NO MAN DIFF REQ, RBC 3.94 L, MCV 89.6, MCH 30.8, MCHC 34.4, RDW 13.4 , MPV 10.1, Gran % 55.7, Lymphocytes % 33.6, Monocytes % 6.2, Eosinophils % 3.5, Basophils % 1.0, Absolute Granulocytes 2.8, Absolute Lymphocytes 1.7, Absolute Monocytes 0.3, Absolute Eosinophils 0.2, Absolute Basophils 0.1 Microbiology 05/11 1709 EXTREMITIE: Gross Specimen Examination - RES ALPHA STREP GRAM NEGATIVE RODS 05/11 1709 EXTREMITIE: Gram Stain - RES Assessment/Plan Assessment: Assessment: 51-year-old male with past medical history of COPD, hypertension, traumatic brain injury, diabetes, congestive heart failure, obstructive sleep apnea on CPAP came for a and swelling of his great toe swelling for the past 1 week. Patient found to have right great toe osteomyelitis and admitted in general medical floor for further evaluation and management. Assessment and plan Right great toe distal phalanx suspicion for osteomyelitis. * Patient had IND with bone biopsy yesterday. Patient is on Unasyn 3 g IV every 6 [day 3]. Patient had an ultrasound arterial Doppler of his right leg which showed peripheral vascular disease We will be seen by vascular consult to rule out any peripheral vascular disease with possible occluded peroneal artery. Perivascular surgery we will take CTA runoff to look for any occlusion. Patient is made aware. Patient has bilateral pitting pedal edema. Bilateral lower extremity pulses felt. * Diabetes-sliding scale NovoLog insulin. * Patient endorses history of CHF though his ECHO is negative [EF more than 65% with no diastolic/systolic heart failure]. He was never been evaluated by washer repairman for the same. I Assume this Lasix was started in view of bilateral pedal edema. Patient needs further evaluation by washer repairman as outpatient. * COPD/AYLEEN-TRC nebulization and continue using CPAP at night. We will continue all his home medication except Lasix. * Code-full code * Diet-carbohydrate diet * DVT prophylaxis-subcutaneous heparin Problem List: 1. Osteomyelitis Pain Ratin Pain Location: none Pain Goal: Remain pain free Pain Plan: tylenol Tomorrow's Labs & Rationales: cbc,bep Zaid France 05/12/17 1103: Attending MD Review Statement Attending Statement Attending MD Statement: examined this patient, discuss w/resident/PA/ELECTRIC METER REPAIRER HELPER, agreed w/resident/PA/ELECTRIC METER REPAIRER HELPER, discussed with family, reviewed EMR data (avail), discussed with nursing, discussed with case mgmt, reviewed images, amended to note Attending Assessment/Plan: 51-year-old male with past medical history of diabetes, hyperlipidemia, hypertension who is here with a left great toe osteomyelitis with a surrounding cellulitis. Patient has an obvious macerated left great toe with a plantar ulcer with surrounding erythema and inflammation around it. Admit to gen/med. F/u blood cultures and start him on IV Unasyn to cover broad- spectrum. MRI positive for OM. S/p debridement with podiatry. Follwo cultures from OR and guide abx therapy. Continue insulin with sliding scale. F/u USG aretrial doppler with evidence of peripheral vascualr disease. Vascular surgery consulted and recommend CTA run off Aorta. Discussed with patient regarding risks/benefits of study to which he agrees including contrast which he received in past without allergy. Gi/DVT prophylaxis.
[2017-05-12 09:35] LABS: ABSOLUTE BASOPHIL COUNT 0.1 /CUMM (0.0-0.2); ABSOLUTE EOSINOPHIL COUNT 0.2 /CUMM (0.0-0.7); ABSOLUTE GRANULOCYTE CT 2.8 /CUMM (1.4-6.5); ABSOLUTE LYMPH COUNT 1.7 /CUMM (1.2-3.4); ABSOLUTE MONOCYTE COUNT 0.3 /CUMM (0.10-0.60); EOSINOPHIL % 3.5 % (0-5); GRANULOCYTE % 55.7 % (42.2-75.2); HEMATOCRIT 35.3 % (42-52); MEAN CORPUSCULAR HGB 30.8 PG (27.0-31.0); MEAN CORPUSCULAR HGB CONC 34.4 G/DL (33.0-37.0); MEAN CORPUSCULAR VOLUME 89.6 FL (80.0-94.0); MEAN PLATELET VOLUME 10.1 FL (7.4-10.4); PLATELET COUNT 166 /CUMM (130-400); RBC DISTRIBUTION WIDTH 13.4 % (11.5-14.5); RED BLOOD CELL CT 3.94 /CUMM (4.70-6.10)
[2017-05-12 14:58] VITALS: BP 108/60
--- NOTE | 2017-05-12 16:03 | Cons- Infect Disease ---
General Information and HPI Consulting Request Date of Consult: 05/12/17 Requested By: Edilma ADAMS,Zaid Reason for Consult: Osteomyelitis of the right great toe Source of Information: patient, old records History of Present Illness: This is a 51-year-old man with a history of COPD, obstructive sleep apnea, on CPAP, hypertension, CHF and diabetes, status post significant trauma 13 years prior to admission, requiring hardware in both knees, the left hip and the neck, with chronic left hip pain, admitted on May 10 with a several week history of pain, swelling and drainage from an ulcer on the right great toe and the more acute onset of fever and elevated blood sugars. On admission he was afebrile. Laboratory data revealed a white blood cell count of 11.5, glucose 456, BUN/ creatinine 18 and 0.6, lactic acid 2.1, alkaline phosphatase 196. X-ray of the right foot revealed soft tissue swelling with no evidence of osteomyelitis. Doppler of the right leg was negative for DVT. MRI of the right foot revealed a diffusely edematous first distal phalanx with probable osteomyelitis at the plantar aspect of the tuft. He was begun on Unasyn and was taken to the OR on May 11 for an I&D and partial amputation of the right great toe. Postop he was continued on Unasyn. He has remained afebrile and, at present, has no pain in the foot. He apparently underwent a CT runoff angiogram of the lower extremities earlier today, with the results pending. Allergies/Medications Allergies: Coded Allergies: No Known Allergies (05/10/17) Home Med List: Aspirin (Aspirin*) 81 MG TAB.CHEW 1 TAB PO DAILY HEART HEALTH (Reported) Atorvastatin Calcium 80 MG TABLET 1 TAB PO DAILY CHOLESTEROL (Reported) Fluticasone/Salmeterol (Advair 250-50 Diskus) 1 EACH BLST.W.DEV 1 PUF INH BID BREATHING PROBLEMS (Reported) Furosemide (Lasix) 40 MG TABLET 1 TAB PO DAILY WATER PILL (Reported) Insulin Glargine,Hum.rec.anlog (Lantus Solostar) 100 UNIT/ML (3 ML) INSULN.PEN 50 UNITS SQ Q12 DIABETES Lisinopril (Prinivil) 20 MG TABLET 1 TAB PO DAILY HEART (Reported) Metformin HCl (Glucophage) 1,000 MG TABLET 1 TAB PO BID DIABETES (Reported) Potassium Chloride (Klor-Con 10) 10 MEQ TABLET.ER 1 TAB PO DAILY SUPPLEMENT ( Reported) Sertraline HCl 50 MG TABLET 1 TAB PO DAILY MENTAL HEALTH (Reported) Past History Travel History Traveled to [place] past 21 day No Medical History Blood Transfusion Hx: Yes Neurological: TBI EENT: NONE Cardiovascular: CHF, hypertension, hyperlipidemia Respiratory: COPD, obstructive sleep apnea (CPAP prn) Gastrointestinal: NONE Hepatic: NONE Renal: NONE Musculoskeletal: NONE Psychiatric: NONE Endocrine: diabetes Blood Disorders: NONE Cancer(s): NONE SENIOR PROFESSIONAL SERVICES CONSULTANT/Reproductive: NONE History of MRSA: No History of VRE: No History of CDIFF: No Isolation History: Standard Surgical History Surgical History: extensive hardware including bilat knees, l. hip, plate in head. Family History Relations & Conditions If Any: SON (The patient reports to have grown up in foster care. He was never adopted and does not know his family. He gets very upset when asked about family history.He has no family history). Relation not specified for: *No pertinent family history Psychosocial History Where Do You Live? Home Who Do You Live With? self Services at Home: None Primary Language: Turkish Smoking Status: Current Everyday Smoker ETOH Use: occasional use Illicit Drug Use: denies illicit drug use Functional Ability ADLs Independent: dressing, eating, toileting, bathing. Ambulation: independent IADLs Independent: shopping, housework, finances, food prep, telephone, transportation , medication admin. Review of Systems Review of Systems Musculoskeletal: Reports: joint pain (left hip). All Other Systems: Reviewed and Negative Exam & Diagnostic Data Last 24 Hrs of Vital Signs/I&O Vital Signs Date Time Temp Pulse Resp B/P B/P Pulse O2 O2 Flow FiO2 Mean Ox Delivery Rate 05/12 1458 98.3 68 20 108/60 95 Room Air 05/12 0751 98.1 64 20 118/76 05/12 0648 98.1 59 20 118/76 95 CPAP 05/11 2239 98.5 67 24 100/56 91 CPAP 05/11 1830 98.5 72 20 116/80 95 Room Air Intake & Output 05/12 1600 05/12 0800 05/12 0000 Intake Total 800 1000 1000 Output Total 1550 1100 400 Balance -750 -100 600 Intake, IV 400 400 Intake, Oral 800 600 600 Number 1 Bowel Movements Output, Urine 1550 1100 400 Physical Exam Other Physical Findings: Afebrile. He is awake and alert in no acute distress. Skin reveals no rash. HEENT negative. Neck is supple with no adenopathy. Lungs are clear. Heart regular rhythm with no murmur. Abdomen is obese, soft, nontender with positive bowel sounds. Back no CVA tenderness. Extremities right foot dressing intact; right leg warmth with 1+ edema; left leg with no cyanosis, clubbing or edema. Neuro is without focality. Last 24 Hours of Lab Results: Laboratory Tests 05/12 0908 Hematology CBC w Diff NO MAN DIFF REQ WBC (4.8 - 10.8 /CUMM) 5.0 RBC (4.70 - 6.10 /CUMM) 3.94 L Hgb (14.0 - 18.0 G/DL) 12.2 L Hct (42 - 52 %) 35.3 L MCV (80.0 - 94.0 FL) 89.6 MCH (27.0 - 31.0 PG) 30.8 MCHC (33.0 - 37.0 G/DL) 34.4 RDW (11.5 - 14.5 %) 13.4 Plt Count (130 - 400 /CUMM) 166 MPV (7.4 - 10.4 FL) 10.1 Gran % (42.2 - 75.2 %) 55.7 Lymphocytes % (20.5 - 51.1 %) 33.6 Monocytes % (1.7 - 9.3 %) 6.2 Eosinophils % (0 - 5 %) 3.5 Basophils % (0.0 - 2.0 %) 1.0 Absolute Granulocytes (1.4 - 6.5 /CUMM) 2.8 Absolute Lymphocytes (1.2 - 3.4 /CUMM) 1.7 Absolute Monocytes (0.10 - 0.60 /CUMM) 0.3 Absolute Eosinophils (0.0 - 0.7 /CUMM) 0.2 Absolute Basophils (0.0 - 0.2 /CUMM) 0.1 Last 24 Hours of Jorgito Results: Blood cultures 2 May 10 negative OR culture May 11 labeled right foot bone positive for alpha strep and gram- negative rods Diagnostic Data Recent Imaging Findings: X-ray of the right foot revealed soft tissue swelling with no evidence of osteomyelitis. Doppler of the right leg was negative for DVT. MRI of the right foot revealed a diffusely edematous first distal phalanx with probable osteomyelitis at the plantar aspect of the tuft. Arterial Doppler of the right leg May 11 revealed evidence of peripheral vascular disease below the level of the knee Assessment/Plan Assessment/Plan Impression: This is a 51-year-old man with a history of diabetes admitted on May 10 with a several week history of pain, swelling and drainage from an ulcer on the right great toe and the more acute onset of fever and elevated blood sugars, found to be afebrile with a mild leukocytosis and with an MRI of the right foot suggestive of osteomyelitis of the tuft of the first distal phalanx, status post partial amputation of the right great toe yesterday. His clinical picture is consistent with osteomyelitis of the right great toe. He has undergone partial amputation of the toe and will need to discuss with Podiatry whether there is any residual osteomyelitis, which would then require a prolonged course of IV antibiotics. He is apparently scheduled for a return to the OR next week. He is currently on Unasyn, which can be continued pending final OR cultures. His arterial Doppler suggests peripheral vascular disease and he apparently underwent a CT runoff angiogram earlier today, with results pending. Suggestion: 1. Follow-up final OR culture 2. Further management of his peripheral vascular disease, based on the angiogram, per Vascular Surgery 3. Await return to the OR next week per Podiatry 4. Continue Unasyn pending above Consult Acknowledgment - Thank you for your consult request.
--- NOTE | 2017-05-12 18:40 | CT SCAN REPORT ---
STUDY: Abdominal, pelvic, and bilateral lower extremity CT angiogram CLINICAL INDICATION: 51-year-old male with peripheral artery disease and absent peroneal artery on Doppler. Necrotic ulcer of the right big toe. TECHNIQUE: Following the administration of a bolus infusion of 125cc of Optiray 350, images of the abdomen, pelvis and bilateral lower extremities were obtained with multidetector helical acquisition. These contrast-enhanced images were processed on an independent workstation into extensive multiplanar and 3D renditions for interpretation. Examination limited secondary to patient body habitus and left hip prosthesis. COMPARISON: Right lower extremity arterial Doppler study 05/11/[address] abdomen pelvis 01/31/2016 DLP: 1402 mGy-cm FINDINGS: VASCULATURE- The infrarenal abdominal aorta is nonaneurysmal and appears widely patent. There is mild atherosclerotic disease of the level of the bifurcation. The superior mesenteric artery and inferior mesenteric artery are patent. The celiac artery is not included in today's examination. The bilateral renal arteries are patent. Atherosclerotic disease results in mild stenosis of the right common iliac artery. The right internal iliac artery is patent. The right external iliac artery is widely patent. Right common femoral artery is patent. Right femoral artery is widely patent. Right popliteal artery is widely patent. Normal three-vessel runoff of the right calf. The right anterior tibial artery, posterior tibial artery and peroneal artery are widely patent to the level of the ankle. There is subcutaneous edema of the soft tissues of the right lower extremity, particularly the distal calf and foot. A few small superficial varicosities are noted. Mild atherosclerotic disease of the left common iliac artery without focal stenosis. The left external iliac artery appears widely patent. Evaluation of the left common femoral artery is limited given streak artifact from left hip prosthesis, however, there does not appear to be a significant stenosis. The left femoral artery is widely patent. Left popliteal artery is widely patent. Normal three-vessel runoff of the left lower extremity. The left anterior tibial artery, posterior tibial artery and peroneal artery are patent to the level of the ankle. The peroneal artery is diminutive. Mild subcutaneous edema of the soft tissues of the left lower extremity. NON-VASCULAR- Evaluation of the abdomen and pelvis is limited secondary to artifact from patient's stomach being in contact with the CT tube. There does not appear to be any gross hydronephrosis. There appears to be a mild stool burden within visualized loops of colon. Shotty bilateral inguinal lymph nodes with mildly enlarged right inguinal lymph nodes which measure up to 2.2 cm in transverse dimension. Incompletely visualized hardware of the spine. Degenerative changes of the lumbar spine. Left hip prosthesis. IMPRESSION: 1. The infrarenal abdominal aorta and deep arteries of the pelvis are widely patent with the exception of the right common iliac artery which demonstrates mild stenosis. 2. Bilateral femoral and popliteal arteries are widely patent. Normal three-vessel runoff of both legs. 3. Subcutaneous edema of the soft tissues of both lower extremities (right worse than left), particularly the distal calf and foot. 4. Limited evaluation of the abdomen and pelvis secondary to artifact from patient body habitus and left hip hardware. 5. Mildly enlarged right inguinal lymph nodes, nonspecific. These may be reactive. Clinical correlation recommended.
[2017-05-12 22:02] VITALS: BP 116/60
[2017-05-13 06:55] VITALS: BP 112/62
--- NOTE | 2017-05-13 08:31 | PN- Housestaff ---
Antwan Espinoza 05/13/17 0830: Subjective Follow-up For: R 1st digit osteomyelitis Subjective: No complaints or acute events overnight. Review of Systems Constitutional: Reports: see HPI. Objective Last 24 Hrs of Vital Signs/I&O Vital Signs Date Time Temp Pulse Resp B/P B/P Pulse O2 O2 Flow FiO2 Mean Ox Delivery Rate 05/13 0655 98.0 70 20 112/62 95 Room Air 05/12 2202 98.5 62 20 116/60 97 05/12 1458 98.3 68 20 108/60 95 Room Air Intake & Output 05/13 1600 05/13 0800 05/13 0000 Intake Total 600 300 Output Total 1150 700 Balance -550 -400 Intake, IV 500 200 Intake, Oral 100 100 Output, Urine 1150 700 Patient 391 lb Weight Physical Exam General Appearance: Alert, Oriented X3, Cooperative, No Acute Distress, Obese Cardiovascular: Regular Rate, Normal S1, Normal S2 Lungs: Clear to Auscultation, Normal Air Movement Extremities: R foot partial amputation and serosanguinous drainage Current Medications: Current Medications Sig/Wally Start time Last Medication Dose Route Stop Time Status Admin Acetaminophen 650 MG .STK-MED ONE 05/12 2106 DC PO 05/13 2107 Acetaminophen 650 MG Q4P PRN 05/11 1315 AC 05/12 PO 211 Ampicillin Sodium/ 3,000 MG Q6 05/10 1906 AC 05/13 Sulbactam Sodium IV 0546 Sodium Chloride 100 ML Aspirin 81 MG DAILY 05/10 1929 AC 05/12 PO 0751 Atorvastatin Calcium 80 MG 1700 05/11 1700 AC 05/12 PO 1812 Budesonide/ 2 PUF BID 05/10 220 AC 05/12 Formoterol Fumarate INH 2112 Dextrose/Sodium 1,000 ML Q20H 05/10 1945 AC 05/12 Chloride IV 2335 Furosemide 40 MG DAILY 05/13 1000 AC PO Heparin Sodium 5,000 UNIT Q8 05/10 220 AC 05/13 (Porcine) SC 0545 Insulin Aspart 4 UNITS ONCE ONE 05/12 2114 DC 05/12 SC 05/12 Insulin Aspart 0 TIDAC 05/11 1700 AC 05/13 SC 0824 Insulin Detemir 3 UNITS BID 05/12 1000 AC 05/12 SC 211 Lisinopril 20 MG DAILY 05/11 1000 AC 05/12 PO 0751 Melatonin 5 MG ONCE ONE 05/12 2044 DC 05/12 PO 05/12 Patient Medication 1 ED ONE ONE 05/12 1345 DC Teaching ED 05/12 1346 Sertraline HCl 50 MG DAILY 05/11 1000 AC 05/12 PO 0752 Last 24 Hrs of Lab/Jorgito Results Last 24 Hrs of Labs/Mics: Laboratory Tests 05/12/17 0908: CBC w Diff NO MAN DIFF REQ, RBC 3.94 L, MCV 89.6, MCH 30.8, MCHC 34.4, RDW 13.4 , MPV 10.1, Gran % 55.7, Lymphocytes % 33.6, Monocytes % 6.2, Eosinophils % 3.5, Basophils % 1.0, Absolute Granulocytes 2.8, Absolute Lymphocytes 1.7, Absolute Monocytes 0.3, Absolute Eosinophils 0.2, Absolute Basophils 0.1 Assessment/Plan Assessment: Mr. Garsia is a 51-year-old male with past medical history of COPD, hypertension, traumatic brain injury, diabetes, congestive heart failure, obstructive sleep apnea on CPAP came for a and swelling of his great toe swelling for the past 1 week. Patient found to have right great toe osteomyelitis and admitted in general medical floor for further evaluation and management. Problem list: R 1st digit osteomyelitis Plan: Unasyn 3 g IV every 6 [day 4] continue non-weight bearing status continue nocturnal CPAP sliding scale NovoLog Possible closure Monday vascular recommendations appreciated Podiatry recommendations appreciated Code-full code Diet-carbohydrate diet DVT prophylaxis-subcutaneous heparin Problem List: 1. Osteomyelitis 2. COPD (chronic obstructive pulmonary disease) Pain Ratin Pain Location: NA Pain Goal: Remain pain free Pain Plan: NA Tomorrow's Labs & Rationales: none Sherita Garcia MD 05/13/17 1308: Attending MD Review Statement Attending Statement Attending MD Statement: examined this patient, discuss w/resident/PA/ODD BUNDLE WORKER, agreed w/resident/PA/ODD BUNDLE WORKER, reviewed EMR data (avail), discussed with nursing, reviewed images, amended to note Attending Assessment/Plan: Patient seen and examined, feels ok. Pain is controlled. Patient will be taken to OR next week. Vital Signs Date Time Temp Pulse Resp B/P B/P Pulse O2 O2 Flow FiO2 Mean Ox Delivery Rate 05/13 0947 98.0 65 120/68 05/13 0655 98.0 70 20 112/62 95 Room Air 05/12 2202 98.5 62 20 116/60 97 05/12 1458 98.3 68 20 108/60 95 Room Air on exam; aox3, nad. cv; s1,s2, rrr resp; clear abd; soft, nt, bs+ ext; no edema, right foot warpped in xenia wrap and dressing. no labs. A/P: 51-year-old male with past medical history of COPD, hypertension, traumatic brain injury, diabetes, congestive heart failure, obstructive sleep apnea on CPAP came for a and swelling of his great toe swelling for the past 1 week. Patient found to have right great toe osteomyelitis and admitted in general medical floor for further evaluation and management. Aortogram consistent with right common iliac artery mild stenosis. Patient currently on Unasyn. Wound is still open and likely he will go to operating room again next week. I have discontinued his IV fluids as there is no plan for surgery today. Continue the insulin for diabetes control, blood sugars were running high but expect blood sugars to come down after IV fluids have been discontinued. Continue the rest of the management. Heparin subcutaneous for DVT prophylaxis.
[2017-05-13 14:33] VITALS: BP 126/56
[2017-05-13 22:09] VITALS: BP 130/70
[2017-05-14 06:00] VITALS: BP 118/76
--- NOTE | 2017-05-14 08:28 | PN- Housestaff ---
Subjective Follow-up For: Right great toe osteomyelitic Complaints: no complaints Subjective: Patient seen and examined at bedside. No overnight events. Patient denies pain in his right foot, nausea, vomiting, abdominal pain, chest pain. Review of Systems Constitutional: Reports: see HPI. Objective Last 24 Hrs of Vital Signs/I&O Vital Signs Date Time Temp Pulse Resp B/P B/P Pulse O2 O2 Flow FiO2 Mean Ox Delivery Rate 05/14 06 97.6 54 18 118/76 93 Room Air 05/13 220 98.3 61 20 130/70 95 Room Air 05/13 1433 98.5 67 20 126/56 96 Intake & Output 05/14 1600 05/14 0800 05/14 0000 Intake Total 450 100 Output Total 650 Balance 450 -550 Intake, IV 250 Intake, Oral 200 100 Output, Urine 650 Patient 335 lb Weight Weight Bed scale Measurement Method Physical Exam General Appearance: Alert, Oriented X3, Cooperative, No Acute Distress Cardiovascular: Regular Rate, Normal S1, Normal S2, No Murmurs Lungs: Normal Air Movement Abdomen: Soft, No Tenderness, No Hepatospenomegaly Extremities: RIGHT FOOT-WRAPPED. nO BLEEDING. Current Medications: Current Medications Sig/Wally Start time Last Medication Dose Route Stop Time Status Admin Acetaminophen 650 MG .STK-MED ONE 05/13 1640 DC PO 05/13 1641 Acetaminophen 650 MG Q4P PRN 05/11 1315 AC 05/13 PO 1641 Ampicillin Sodium/ 3,000 MG Q6 05/10 1906 AC 05/14 Sulbactam Sodium IV 1327 Sodium Chloride 100 ML Aspirin 81 MG DAILY 05/10 1929 AC 05/14 PO 0858 Atorvastatin Calcium 80 MG 1700 05/11 1700 AC 05/13 PO 1641 Budesonide/ 2 PUF BID 05/10 2200 AC 05/14 Formoterol Fumarate INH 0900 Furosemide 40 MG DAILY 05/13 1000 AC 05/14 PO 0858 Heparin Sodium 5,000 UNIT Q8 05/10 2199 AC 05/14 (Porcine) SC 1327 Insulin Aspart 0 TIDAC 05/11 1700 AC 05/14 SC 1150 Insulin Detemir 3 UNITS BID 05/12 1000 AC 05/14 SC 0855 Lisinopril 20 MG DAILY 05/11 1000 AC 05/14 PO 0858 Melatonin 5 MG ONCE ONE 05/13 2114 DC 05/13 PO 05/13 Melatonin 3 MG ONCE ONE 05/13 2100 CAN PO 05/13 210 Sertraline HCl 50 MG DAILY 05/11 1000 AC 05/14 PO 0859 Assessment/Plan Assessment: 51-year-old male with past medical history of COPD, hypertension, traumatic brain injury, diabetes, congestive heart failure, obstructive sleep apnea on CPAP came for a and swelling of his great toe swelling for the past 1 week. Patient found to have right great toe osteomyelitis and admitted in general medical floor for further evaluation and management. Assessment and plan Right great toe distal phalanx suspicion for osteomyelitis. * Patient had IND with bone biopsy yesterday. Patient is on Unasyn 3 g IV every 6 [day 3]. Patient had an ultrasound arterial Doppler of his right leg which showed peripheral vascular disease, and a CT runoff was done which was negative for any occlusion of his vessels. Patient has bilateral pitting pedal edema. Bilateral lower extremity pulses felt. Awaiting final cultures. * Diabetes-sliding scale NovoLog insulin. * Patient endorses history of CHF though his ECHO is negative [EF more than 65% with no diastolic/systolic heart failure]. He was never been evaluated by warehouse lead for the same. I Assume this Lasix was started in view of bilateral pedal edema. Patient needs further evaluation by warehouse lead as outpatient. * COPD/AYLEEN-TRC nebulization and continue using CPAP at night. We will continue all his home medication except Lasix. * Code-full code * Diet-carbohydrate diet * DVT prophylaxis-subcutaneous heparin Problem List: 1. Osteomyelitis Pain Ratin Pain Location: NONE Pain Goal: Remain pain free Pain Plan: TYLENOL Tomorrow's Labs & Rationales: CBC,BEP
--- NOTE | 2017-05-14 09:38 | PN- Infect Dx ---
Subjective Subjective: Afebrile. He notes occasional pain in the right foot. Objective Last 24 Hrs of Vital Signs/I&O Vital Signs Date Time Temp Pulse Resp B/P B/P Pulse O2 O2 Flow FiO2 Mean Ox Delivery Rate 05/14 0600 97.6 54 18 118/76 93 Room Air 05/13 2209 98.3 61 20 130/70 95 Room Air 05/13 1433 98.5 67 20 126/56 96 05/13 0947 98.0 65 120/68 Intake & Output 05/14 1600 05/14 0800 05/14 0000 Intake Total 450 100 Output Total 650 Balance 450 -550 Intake, IV 250 Intake, Oral 200 100 Output, Urine 650 Patient 335 lb Weight Weight Bed scale Measurement Method Physical Exam Other Physical Findings: He appears comfortable in no acute distress Extremities right foot with slight erythema over the right great toe Results Last 24 Hours of Lab Results: No labs from today Last 24 Hours of Jorgito Results: OR culture May 11 labeled right foot bone positive for alpha strep and Proteus sensitive to all antibiotics tested Blood cultures 2 May 10 negative Recent Imaging Studies: CT runoff angiogram May 12 reveals mild stenosis of the right common iliac artery Assessment/Plan ID Impression: Stable, with temperatures and white blood cell count normal, status post partial amputation of the right great toe 3 days ago for osteomyelitis, with his OR culture positive for alpha strep and Proteus, both of which should be covered by the Unasyn. It is not clear if he will be left with any residual osteomyelitis and will discuss this further with Podiatry. Suggestion: 1. Await return to the OR this week 2. Follow-up final OR culture 3. Continue Unasyn pending above
--- NOTE | 2017-05-14 12:43 | PN- Att Addend ---
Attending Addendum Attending Brief Note Patient seen and examined, doing well. Offers no complaints. Vital Signs Date Time Temp Pulse Resp B/P B/P Pulse O2 O2 Flow FiO2 Mean Ox Delivery Rate 05/14 0600 97.6 54 18 118/76 93 Room Air 05/13 2209 98.3 61 20 130/70 95 Room Air 05/13 1433 98.5 67 20 126/56 96 on exam; aox3, nad. cv; s1,s2, rrr resp; clear abd; soft, nt, bs+ ext; no edema, right foot warpped in xenia wrap and dressing. no labs. A/P: 51-year-old male with past medical history of COPD, hypertension, traumatic brain injury, diabetes, congestive heart failure, obstructive sleep apnea on CPAP came for a and swelling of his great toe swelling for the past 1 week. Patient found to have right great toe osteomyelitis and admitted in general medical floor for further evaluation and management. Aortogram consistent with right common iliac artery mild stenosis. Will continue Unasyn per infectious disease. Patient to be taken to operating room again next week. Continue the insulin for diabetes control. Continue the rest of the medications. DVT prophylaxis: Heparin subcutaneous.
[2017-05-14 14:51] VITALS: BP 120/68
[2017-05-14 22:45] VITALS: BP 120/60
[2017-05-15 07:12] VITALS: BP 138/74
--- NOTE | 2017-05-15 07:36 | PN- Housestaff ---
Roverto ADAMS,Tiffany 05/15/17 0736: Subjective Follow-up For: Right great toe osteomyelitis Complaints: no complaints Subjective: Patient seen and examined at bedside. No complaints. He denies pain in his left leg, nausea, vomiting, abdominal pain, chest pain. Review of Systems Constitutional: Reports: see HPI. Objective Last 24 Hrs of Vital Signs/I&O Vital Signs Date Time Temp Pulse Resp B/P B/P Pulse O2 O2 Flow FiO2 Mean Ox Delivery Rate 05/15 1508 98.1 68 20 140/85 94 05/15 1048 55 132/70 05/15 0800 Room Air 05/15 0712 97.9 53 21 138/74 93 Room Air 05/14 2245 98.3 60 21 120/60 93 Room Air Intake & Output 05/15 1600 05/15 0800 05/15 0000 Intake Total 725 800 800 Output Total 550 700 Balance 175 800 100 Intake, IV 125 200 200 Intake, Oral 600 600 600 Output, Urine 550 700 Patient 337 lb 336 lb Weight Weight Bed scale Measurement Method Physical Exam General Appearance: Alert, Oriented X3, Cooperative, No Acute Distress Cardiovascular: Normal S1, Normal S2, No Murmurs Lungs: Normal Air Movement Abdomen: Soft, No Tenderness, No Hepatospenomegaly Neurological: Strength at 5/5 X4 Ext, Normal Tone, Sensation Intact Current Medications: Current Medications Sig/Wally Start time Last Medication Dose Route Stop Time Status Admin Acetaminophen 650 MG .STK-MED ONE 05/14 2113 DC PO 05/14 211 Acetaminophen 650 MG .STK-MED ONE 05/14 1602 DC PO 05/14 1603 Acetaminophen 650 MG Q4P PRN 05/11 1315 AC 05/14 PO 2115 Ampicillin Sodium/ 3,000 MG Q6 05/10 1906 AC 05/15 Sulbactam Sodium IV 1223 Sodium Chloride 100 ML Aspirin 81 MG DAILY 05/10 1929 AC 05/15 PO 1047 Atorvastatin Calcium 80 MG 1700 05/11 1700 AC 05/14 PO 1654 Budesonide/ 2 PUF BID 05/10 2199 AC 05/15 Formoterol Fumarate INH 1049 Furosemide 40 MG DAILY 05/13 1000 AC 05/15 PO 1047 Heparin Sodium 5,000 UNIT Q8 05/10 2199 AC 05/15 (Porcine) SC 1326 Insulin Aspart 0 TIDAC 05/11 1700 AC 05/15 SC 1229 Insulin Detemir 5 UNITS BID 05/15 1000 AC 05/15 SC 1048 Insulin Detemir 3 UNITS BID 05/12 1000 DC 05/14 SC 2111 Lisinopril 20 MG DAILY 05/11 1000 AC 05/15 PO 1048 Melatonin 5 MG ONCE ONE 05/145 DC 05/14 PO 05/14 2145 2140 Sertraline HCl 50 MG DAILY 05/11 1000 AC 05/15 PO 1048 Last 24 Hrs of Lab/Jorgito Results Last 24 Hrs of Labs/Mics: Laboratory Tests 05/15/17 0635: Anion Gap 10, Estimated GFR > 60, BUN/Creatinine Ratio 28.0 H, CBC w Diff NO MAN DIFF REQ, RBC 4.13 L, MCV 90.9, MCH 30.9, MCHC 33.9, RDW 13.5, MPV 9.9, Gran % 57.6, Lymphocytes % 31.1, Monocytes % 6.4, Eosinophils % 4.3, Basophils % 0.6, Absolute Granulocytes 3.5, Absolute Lymphocytes 1.9, Absolute Monocytes 0.4 , Absolute Eosinophils 0.3, Absolute Basophils 0 Assessment/Plan Assessment: 51-year-old male with past medical history of COPD, hypertension, traumatic brain injury, diabetes, congestive heart failure, obstructive sleep apnea on CPAP came for a and swelling of his great toe swelling for the past 1 week. Patient found to have right great toe osteomyelitis and admitted in general medical floor for further evaluation and management. Assessment and plan Right great toe distal phalanx suspicion for osteomyelitis. * Patient had I&D with bone biopsy. Patient is on Unasyn 3 g IV every 6 [day 4 ]. Patient had an ultrasound arterial Doppler of his right leg which showed peripheral vascular disease, and a CT runoff was done which was negative for any occlusion of his vessels. Patient has bilateral pitting pedal edema. Bilateral lower extremity pulses felt. Patient is plan for closure tomorrow. * Diabetes-sliding scale NovoLog insulin. * Patient endorses history of CHF though his ECHO is negative [EF more than 65% with no diastolic/systolic heart failure]. He was never been evaluated by clipper machine operator for the same. I Assume this Lasix was started in view of bilateral pedal edema. Patient needs further evaluation by clipper machine operator as outpatient. * COPD/AYLEEN-TRC nebulization and continue using CPAP at night. We will continue all his home medication except Lasix. * Code-full code * Diet-carbohydrate diet * DVT prophylaxis-subcutaneous hepari Problem List: 1. Osteomyelitis Pain Ratin Pain Location: none Pain Goal: Remain pain free Pain Plan: tylenol Tomorrow's Labs & Rationales: cbc,bep Zaid [place] 05/15/17 1143: Attending MD Review Statement Attending Statement Attending MD Statement: examined this patient, discuss w/resident/PA/FUR GRADER, agreed w/resident/PA/FUR GRADER, discussed with family, reviewed EMR data (avail), discussed with nursing, discussed with case mgmt, reviewed images, amended to note Attending Assessment/Plan: 51-year-old male with past medical history of COPD, hypertension, traumatic brain injury, diabetes, congestive heart failure, obstructive sleep apnea on CPAP came for a and swelling of his great toe swelling for the past 1 week. Patient found to have right great toe osteomyelitis and admitted in general medical floor for further evaluation and management. Aortogram consistent with right common iliac artery mild stenosis. Will continue Unasyn per infectious disease. Patient to be taken to operating room as per podiatry Continue the insulin for diabetes control. Follow OR cultures and f/u ID. Continue the rest of the medications. DVT prophylaxis: Heparin subcutaneous.
[2017-05-15 08:00] LABS: ABSOLUTE BASOPHIL COUNT 0 /CUMM (0.0-0.2); ABSOLUTE EOSINOPHIL COUNT 0.3 /CUMM (0.0-0.7); ABSOLUTE GRANULOCYTE CT 3.5 /CUMM (1.4-6.5); ABSOLUTE LYMPH COUNT 1.9 /CUMM (1.2-3.4); ABSOLUTE MONOCYTE COUNT 0.4 /CUMM (0.10-0.60); BASOPHIL % 0.6 % (0.0-2.0); EOSINOPHIL % 4.3 % (0-5); GRANULOCYTE % 57.6 % (42.2-75.2); HEMATOCRIT 37.6 % (42-52); MEAN CORPUSCULAR HGB 30.9 PG (27.0-31.0); MEAN CORPUSCULAR HGB CONC 33.9 G/DL (33.0-37.0); MEAN CORPUSCULAR VOLUME 90.9 FL (80.0-94.0); MEAN PLATELET VOLUME 9.9 FL (7.4-10.4); PLATELET COUNT 195 /CUMM (130-400); RBC DISTRIBUTION WIDTH 13.5 % (11.5-14.5); RED BLOOD CELL CT 4.13 /CUMM (4.70-6.10); WHITE BLOOD CELL COUNT 6.1 /CUMM (4.8-10.8)
--- NOTE | 2017-05-15 14:08 | PN- Infect Dx ---
Subjective Subjective: Afebrile. He does not offer any complaints with no significant pain in the right foot. Objective Last 24 Hrs of Vital Signs/I&O Vital Signs Date Time Temp Pulse Resp B/P B/P Pulse O2 O2 Flow FiO2 Mean Ox Delivery Rate 05/15 1048 55 132/70 05/15 0800 Room Air 05/15 0712 97.9 53 21 138/74 93 Room Air 05/14 2245 98.3 60 21 120/60 93 Room Air 05/14 1451 98.9 62 22 120/68 94 Intake & Output 05/15 1600 05/15 0800 05/15 0000 Intake Total 800 800 Output Total 700 Balance 800 100 Intake, IV 200 200 Intake, Oral 600 600 Output, Urine 700 Patient 337 lb 336 lb Weight Weight Bed scale Measurement Method Physical Exam Other Physical Findings: He appears comfortable, currently on CPAP, in no acute distress Extremities right foot dressing intact Results Last 24 Hours of Lab Results: Laboratory Tests 05/15 0635 Chemistry Sodium (137 - 145 mmol/L) 137 Potassium (3.5 - 5.1 mmol/L) 4.6 Chloride (98 - 107 mmol/L) 98 Carbon Dioxide (22 - 30 mmol/L) 29 Anion Gap (5 - 16) 10 BUN (9 - 20 mg/dL) 14 Creatinine (0.7 - 1.2 mg/dL) 0.5 L Estimated GFR (>60 ml/min) > 60 BUN/Creatinine Ratio (7 - 25 %) 28.0 H Hematology CBC w Diff NO MAN DIFF REQ WBC (4.8 - 10.8 /CUMM) 6.1 RBC (4.70 - 6.10 /CUMM) 4.13 L Hgb (14.0 - 18.0 G/DL) 12.8 L Hct (42 - 52 %) 37.6 L MCV (80.0 - 94.0 FL) 90.9 MCH (27.0 - 31.0 PG) 30.9 MCHC (33.0 - 37.0 G/DL) 33.9 RDW (11.5 - 14.5 %) 13.5 Plt Count (130 - 400 /CUMM) 195 MPV (7.4 - 10.4 FL) 9.9 Gran % (42.2 - 75.2 %) 57.6 Lymphocytes % (20.5 - 51.1 %) 31.1 Monocytes % (1.7 - 9.3 %) 6.4 Eosinophils % (0 - 5 %) 4.3 Basophils % (0.0 - 2.0 %) 0.6 Absolute Granulocytes (1.4 - 6.5 /CUMM) 3.5 Absolute Lymphocytes (1.2 - 3.4 /CUMM) 1.9 Absolute Monocytes (0.10 - 0.60 /CUMM) 0.4 Absolute Eosinophils (0.0 - 0.7 /CUMM) 0.3 Absolute Basophils (0.0 - 0.2 /CUMM) 0 Last 24 Hours of Jorgito Results: OR culture May 11 labeled right great toe bone positive for alpha strep, Proteus sensitive to all antibiotics tested, Enterococcus sensitive to Ampicillin and Staph aureus sensitive to Oxacillin Blood cultures May 10 one bottle positive for coag-negative Staph Assessment/Plan ID Impression: Stable, with temperatures and white blood cell count remaining normal, on Unasyn for a polymicrobial infection of the right great toe now 4 days status post partial amputation for osteomyelitis. Have discussed with Podiatry who does not feel that he has any residual osteomyelitis; therefore he should only require a short course of oral antibiotics, after his surgery tomorrow, for residual soft tissue infection. Vascular surgery evaluation appreciated, with no evidence of significant arterial stenosis on the recent CTA and, therefore, there are no plans for any intervention. The positive blood culture for coag-negative Staph presumably represents a contaminant and should not require treatment. Suggestion: 1. Await OR tomorrow for wound closure 2. Continue Unasyn pending above
[2017-05-15 15:08] VITALS: BP 140/85
[2017-05-15 23:51] VITALS: BP 122/60
[2017-05-16 06:37] VITALS: BP 116/72
--- NOTE | 2017-05-16 07:15 | PN- Housestaff ---
Roverto ADAMS,Tiffany 05/16/17 0714: Subjective Follow-up For: Right great toe osteomyelitis Complaints: no complaints Subjective: Patient seen and examined at bedside. He sitting in his bed comfortably. No overnight events. No complaints. He denies pain in his right leg, chest pain, shortness of breath. Review of Systems Constitutional: Reports: see HPI. Objective Last 24 Hrs of Vital Signs/I&O Vital Signs Date Time Temp Pulse Resp B/P B/P Pulse O2 O2 Flow FiO2 Mean Ox Delivery Rate 05/16 1239 54 138/78 05/16 0637 98.1 50 20 116/72 95 CPAP 05/16 0000 93 CPAP 05/15 2351 98.2 59 18 122/60 93 Room Air 05/15 1508 98.1 68 20 140/85 94 Intake & Output 05/16 1600 05/16 0800 05/16 0000 Intake Total 450 310 Output Total 325 500 Balance -325 -50 310 Intake, IV 450 130 Intake, Oral 0 180 Number 0 Bowel Movements Output, Urine 325 500 Patient 390 lb Weight Physical Exam General Appearance: Alert, Oriented X3, Cooperative, No Acute Distress Cardiovascular: Regular Rate, Normal S1, Normal S2, No Murmurs Lungs: Normal Air Movement Abdomen: Soft, No Tenderness, No Hepatospenomegaly Neurological: Normal Speech, Strength at 5/5 X4 Ext, Normal Tone, Sensation Intact Extremities: right great toe - wrapped Current Medications: Current Medications Sig/Wally Start time Last Medication Dose Route Stop Time Status Admin Acetaminophen 650 MG .STK-MED ONE 05/15 1933 DC PO 05/15 193 Acetaminophen 650 MG .STK-MED ONE 05/15 1610 DC PO 05/15 1611 Acetaminophen 650 MG Q4P PRN 05/11 1315 AC 05/15 PO 1936 Ampicillin Sodium/ 3,000 MG Q6 05/10 1906 AC 05/16 Sulbactam Sodium IV 1242 Sodium Chloride 100 ML Aspirin 81 MG DAILY 05/10 1929 AC 05/16 PO 1240 Atorvastatin Calcium 80 MG 1700 05/11 1700 AC 05/15 PO 1835 Budesonide/ 2 PUF BID 05/10 2200 AC 05/16 Formoterol Fumarate INH 1240 Dextrose/Sodium 1,000 ML Q20H 05/15 2330 DC 05/16 Chloride IV 05/16 1928 0030 Furosemide 40 MG DAILY 05/13 1000 AC 05/16 PO 1239 Heparin Sodium 5,000 UNIT Q8 05/10 2200 AC 05/16 (Porcine) SC 0626 Insulin Aspart 0 TIDAC 05/16 1200 AC 05/16 SC 1253 Insulin Aspart 0 TIDAC 05/11 1700 DC 05/15 SC 1835 Insulin Detemir 3 UNITS BID 05/16 2200 AC SC Insulin Detemir 5 UNITS BID 05/15 1000 DC 05/15 SC 2211 Insulin Human Regular 10 UNITS .STK-MED ONE 05/16 0039 DC IV 05/16 0040 Insulin Human Regular 0 Q6 05/15 2359 DC 05/16 SC 0624 Lisinopril 20 MG DAILY 05/11 1000 AC 05/16 PO 1239 Melatonin 3 MG ONCE ONE 05/15 2199 DC 05/15 PO 05/15 2200 221 Sertraline HCl 50 MG DAILY 05/11 1000 AC 05/16 PO 1240 Last 24 Hrs of Lab/Jorgito Results Last 24 Hrs of Labs/Mics: Laboratory Tests 05/16/17 0747: Anion Gap 13, Estimated GFR > 60, BUN/Creatinine Ratio 32.0 H, CBC w Diff NO MAN DIFF REQ, RBC 4.05 L, MCV 92.1, MCH 30.8, MCHC 33.4, RDW 13.6, MPV 9.6, Gran % 59.1, Lymphocytes % 30.1, Monocytes % 6.1, Eosinophils % 4.2, Basophils % 0.5, Absolute Granulocytes 3.8, Absolute Lymphocytes 2.0, Absolute Monocytes 0.4 , Absolute Eosinophils 0.3, Absolute Basophils 0 Assessment/Plan Assessment: 51-year-old male with past medical history of COPD, hypertension, traumatic brain injury, diabetes, congestive heart failure, obstructive sleep apnea on CPAP came for a and swelling of his great toe swelling for the past 1 week. Patient found to have right great toe osteomyelitis and admitted in general medical floor for further evaluation and management. Assessment and plan Right great toe distal phalanx suspicion for osteomyelitis. * Patient had I&D with bone biopsy. Patient is on Unasyn 3 g IV every 6 [day 5 ]. Patient had an ultrasound arterial Doppler of his right leg which showed peripheral vascular disease, and a CT runoff was done which was negative for any occlusion of his vessels. Patient has bilateral pitting pedal edema. Bilateral lower extremity pulses felt. Patient is plan for closure today. * Diabetes-sliding scale NovoLog insulin. * Patient endorses history of CHF though his ECHO is negative [EF more than 65% with no diastolic/systolic heart failure]. He was never been evaluated by pattern carrier for the same. I Assume this Lasix was started in view of bilateral pedal edema. Patient needs further evaluation by pattern carrier as outpatient. * COPD/AYLEEN-TRC nebulization and continue using CPAP at night. We will continue all his home medication except Lasix. * Code-full code * Diet-carbohydrate diet * DVT prophylaxis-subcutaneous heparin Update-patient had the following procedure today. 1 open incision and drainage deep to the D fashion with exposure of the extensor and flexor tendon and tendon sheath multiple sites right foot 2 delayed primary closure of open surgical wound with local random advancement flap 3 revisional partial first ray resection 4 intraoperative administration of ankle block anesthesia 5 excisional debridement Discussed with Dr. De Paz. He suggested to send the patient home tomorrow with by mouth antibiotics and heel touch weightbearing with surgical shoe. Problem List: 1. Osteomyelitis Pain Ratin Pain Location: none Pain Goal: Remain pain free Pain Plan: tylenol Tomorrow's Labs & Rationales: cbc,bep Zaid France 05/16/17 1114: Attending MD Review Statement Attending Statement Attending MD Statement: examined this patient, discuss w/resident/PA/DEVELOPMENT EXECUTIVE, agreed w/resident/PA/DEVELOPMENT EXECUTIVE, discussed with family, reviewed EMR data (avail), discussed with nursing, discussed with case mgmt, reviewed images, amended to note Attending Assessment/Plan: Patient taken to OR as per podiatry. CTA run off with no significant peripheral vascular disease. Patient abx as per ID. Cont current care..
[2017-05-16 08:57] LABS: ABSOLUTE BASOPHIL COUNT 0 /CUMM (0.0-0.2); ABSOLUTE EOSINOPHIL COUNT 0.3 /CUMM (0.0-0.7); ABSOLUTE GRANULOCYTE CT 3.8 /CUMM (1.4-6.5); ABSOLUTE MONOCYTE COUNT 0.4 /CUMM (0.10-0.60); BASOPHIL % 0.5 % (0.0-2.0); EOSINOPHIL % 4.2 % (0-5); GRANULOCYTE % 59.1 % (42.2-75.2); HEMATOCRIT 37.3 % (42-52); MEAN CORPUSCULAR HGB 30.8 PG (27.0-31.0); MEAN CORPUSCULAR HGB CONC 33.4 G/DL (33.0-37.0); MEAN CORPUSCULAR VOLUME 92.1 FL (80.0-94.0); MEAN PLATELET VOLUME 9.6 FL (7.4-10.4); PLATELET COUNT 193 /CUMM (130-400); RBC DISTRIBUTION WIDTH 13.6 % (11.5-14.5); RED BLOOD CELL CT 4.05 /CUMM (4.70-6.10); WHITE BLOOD CELL COUNT 6.5 /CUMM (4.8-10.8)
--- NOTE | 2017-05-16 10:32 | Operative Report ---
Operative/Inv Procedure Report Surgery Date: 05/16/17 Name of Procedure: 1 open incision and drainage deep to the D fashion with exposure of the extensor and flexor tendon and tendon sheath multiple sites right foot 2 delayed primary closure of open surgical wound with local random advancement flap 3 revisional partial first ray resection 4 intraoperative administration of ankle block anesthesia 5 excisional debridement Pre-Operative Diagnosis: 1 open necrotic wound right foot 2 osteomyelitis right foot 3 diabetic peripheral neuropathy Post-Operative Diagnosis: The same Estimated Blood Loss: less than 50ml Surgeon/Laboratory Manager: BLANCA TANNER DPM Anesthesia: moderate sedation, block Operative/Procedure Note Note: After obtaining informed consent the patient was brought to the operating room and placed on the operating table in the supine position. The patient was then securely fastened to the operating table utilizing safety belt. After Mr.'s of IV sedation, 10 mL of 0.5% Marcaine plain was infiltrated about the patient's right ankle. Right foot and ankle then scrubbed prepped and draped in usual aseptic manner. Digitorectal right foot, where a large full-thickness necrotic was identified. A 15 blade visualized sharply revised skin margins. Dissection was then carried down deep to the fashion with exposure of the extensor and flexor tendon and tendon sheath multiple sites, both proximally and distally. All necrotic nonviable infected tissue sharply evacuated from the wound bed. Dissection and continued proximally to the level metatarsal phalangeal joint with the soft tissue structures were sectioned and the distal osseous segment was freed and passed from the operative field. He was sent as specimen for pathologic inspection. Nipple was then irrigated 3 L of normal sterile saline infusion 50,000 units of bacitracin. Following this, the foot was redraped and surgeon's top was changed clean gloves. Any bleeding vessels identified were cauterized or ligated as encountered. A dorsal plantar flap was then developed with undermining, mobilization and advancement adjacent tissue centrally. The deep side of the flap was held centrally with 3-0 Vicryl. Subtenons tissues reapproximated 3-0 Vicryl and skin edges reapproximated 3-0 nylon. Incision was dressed with Xeroform 4 x 4's Kerlix and Jefry wrap. The patient was noted tolerate both procedure and anesthesia well and the patient was transported from the operative room to recovery with vital signs stable best assess intact both the dorsal and plantar flaps.
[2017-05-16 15:47] VITALS: BP 120/60
--- NOTE | 2017-05-16 16:22 | PN- Infect Dx ---
Subjective Subjective: Afebrile without complaints Objective Last 24 Hrs of Vital Signs/I&O Vital Signs Date Time Temp Pulse Resp B/P B/P Pulse O2 O2 Flow FiO2 Mean Ox Delivery Rate 05/16 1547 98.6 56 22 120/60 93 05/16 1239 54 138/78 05/16 0637 98.1 50 20 116/72 95 CPAP 05/16 0000 93 CPAP 05/15 2351 98.2 59 18 122/60 93 Room Air Intake & Output 05/16 1600 05/16 0800 05/16 0000 Intake Total 1350 450 310 Output Total 725 500 Balance 625 -50 310 Intake, IV 150 450 130 Intake, Oral 1200 0 180 Number 0 Bowel Movements Output, Urine 725 500 Patient 390 lb Weight Physical Exam Other Physical Findings: He appears comfortable in no acute distress Extremities right foot dressing intact Results Last 24 Hours of Lab Results: Laboratory Tests 05/16 0747 Chemistry Sodium (137 - 145 mmol/L) 141 Potassium (3.5 - 5.1 mmol/L) 4.7 Chloride (98 - 107 mmol/L) 102 Carbon Dioxide (22 - 30 mmol/L) 27 Anion Gap (5 - 16) 13 BUN (9 - 20 mg/dL) 16 Creatinine (0.7 - 1.2 mg/dL) 0.5 L Estimated GFR (>60 ml/min) > 60 BUN/Creatinine Ratio (7 - 25 %) 32.0 H Hematology CBC w Diff NO MAN DIFF REQ WBC (4.8 - 10.8 /CUMM) 6.5 RBC (4.70 - 6.10 /CUMM) 4.05 L Hgb (14.0 - 18.0 G/DL) 12.5 L Hct (42 - 52 %) 37.3 L MCV (80.0 - 94.0 FL) 92.1 MCH (27.0 - 31.0 PG) 30.8 MCHC (33.0 - 37.0 G/DL) 33.4 RDW (11.5 - 14.5 %) 13.6 Plt Count (130 - 400 /CUMM) 193 MPV (7.4 - 10.4 FL) 9.6 Gran % (42.2 - 75.2 %) 59.1 Lymphocytes % (20.5 - 51.1 %) 30.1 Monocytes % (1.7 - 9.3 %) 6.1 Eosinophils % (0 - 5 %) 4.2 Basophils % (0.0 - 2.0 %) 0.5 Absolute Granulocytes (1.4 - 6.5 /CUMM) 3.8 Absolute Lymphocytes (1.2 - 3.4 /CUMM) 2.0 Absolute Monocytes (0.10 - 0.60 /CUMM) 0.4 Absolute Eosinophils (0.0 - 0.7 /CUMM) 0.3 Absolute Basophils (0.0 - 0.2 /CUMM) 0 Last 24 Hours of Jorgito Results: OR culture May 11 labeled right great toe bone positive for alpha strep, Proteus, Enterococcus, Staph aureus and Prevotella Assessment/Plan ID Impression: Stable, with temperatures and white blood cell count remaining normal, on Unasyn for a polymicrobial infection of the right great toe, status post revisional partial first ray resection and delayed primary closure earlier today, now 5 days status post partial amputation for osteomyelitis. Have discussed with Podiatry who does not feel that he has any residual osteomyelitis; therefore he should only require a short course of oral antibiotics for residual soft tissue infection. Suggestion: 1. X-ray of the right foot for a postop baseline 2. Discontinue Unasyn and begin Augmentin 875 mg po every 12 hours for 1 week
[2017-05-16 21:33] VITALS: BP 124/70
--- NOTE | 2017-05-17 00:41 | RADIOLOGY REPORT ---
EXAMINATION: RIGHT FOOT 3 VIEWS CLINICAL INFORMATION: Osteomyelitis. Postop. COMPARISON: 05/10/2017. TECHNIQUE: AP, lateral, oblique views of the right foot were obtained. FINDINGS: The patient is status post resection to the first proximal and distal phalanges. There is soft tissue swelling and a small amount of expected subcutaneous gas. There are no acute fractures. No additional areas of bone destruction are identified. There is no ankle joint effusion. IMPRESSION: Status post amputation to the first digit with expected soft tissue swelling and subcutaneous gas present.
[2017-05-17 06:43] VITALS: BP 116/70
--- NOTE | 2017-05-17 07:33 | PN- Housestaff ---
Roverto ADAMS,Tiffany 05/17/17 0732: Subjective Follow-up For: Right great toe osteomyelitis Complaints: no complaints Subjective: Patient seen and examined at bedside. No overnight events. No complaints. He denies pain in his right great toe. Review of Systems Constitutional: Reports: see HPI. Objective Last 24 Hrs of Vital Signs/I&O Vital Signs Date Time Temp Pulse Resp B/P B/P Pulse O2 O2 Flow FiO2 Mean Ox Delivery Rate 05/17 0747 65 116/70 05/17 0643 98.6 64 20 116/70 92 Room Air 05/16 2133 97.9 51 20 124/70 95 Room Air 05/16 1547 98.6 56 22 120/60 93 05/16 1239 54 138/78 Intake & Output 05/17 1600 05/17 0800 05/17 0000 Intake Total 600 700 Output Total 450 Balance 600 250 Intake, IV 100 Intake, Oral 600 600 Output, Urine 450 Patient 392 lb Weight Weight Bed scale Measurement Method Physical Exam General Appearance: Alert, Oriented X3, Cooperative, No Acute Distress Cardiovascular: Normal S1, Normal S2, No Murmurs Lungs: Clear to Auscultation Abdomen: Soft, No Tenderness, No Hepatospenomegaly Neurological: Normal Speech, Strength at 5/5 X4 Ext, Normal Tone, Sensation Intact Current Medications: Current Medications Sig/Wally Start time Last Medication Dose Route Stop Time Status Admin Acetaminophen 650 MG .STK-MED ONE 05/17 0046 DC PO 05/17 0047 Acetaminophen 650 MG Q4P PRN 05/11 1315 DCD 05/17 PO 0047 Amoxicillin/ 875 MG Q12 05/16 2199 DCD 05/17 Clavulanate Potassium PO 0747 Ampicillin Sodium/ 3,000 MG Q6 05/10 1906 DC 05/16 Sulbactam Sodium IV 1858 Sodium Chloride 100 ML Aspirin 81 MG DAILY 05/10 1929 DCD 05/17 PO 0747 Atorvastatin Calcium 80 MG 1700 05/11 1700 DCD 05/16 PO 1617 Budesonide/ 2 PUF BID 05/10 2199 DCD 05/17 Formoterol Fumarate INH 0747 Fentanyl Citrate 100 MCG .STK-MED ONE 05/16 1503 DC IM 05/16 1504 Furosemide 40 MG DAILY 05/13 1000 DCD 05/17 PO 0747 Heparin Sodium 5,000 UNIT Q8 05/10 2199 DCD 05/17 (Porcine) SC 0627 Insulin Aspart 0 TIDAC 05/16 1200 DCD 05/17 SC 0746 Insulin Detemir 3 UNITS BID 05/16 2200 DCD 05/17 SC 0746 Lisinopril 20 MG DAILY 05/11 1000 DCD 05/17 PO 0747 Melatonin 5 MG AT BEDTIME 05/16 2200 DCD 05/16 PO 2145 Midazolam HCl 2 MG .STK-MED ONE 05/16 1503 DC IM 05/16 1504 Patient Medication 1 ED ONE 05/17 0000 NR Teaching ED 05/17 2359 Patient Medication 1 ED ONE ONE 05/16 1430 DC 05/16 Teaching ED 05/16 1431 1619 Sertraline HCl 50 MG DAILY 05/11 1000 DCD 05/17 PO 0746 Last 24 Hrs of Lab/Jorgito Results Last 24 Hrs of Labs/Mics: Laboratory Tests 05/17/17 0700: CBC w Diff NO MAN DIFF REQ, RBC 4.14 L, MCV 92.0, MCH 30.8, MCHC 33.5, RDW 13.7 , MPV 9.6, Gran % 64.4, Lymphocytes % 26.3, Monocytes % 5.8, Eosinophils % 3.0, Basophils % 0.5, Absolute Granulocytes 4.9, Absolute Lymphocytes 2.0, Absolute Monocytes 0.4, Absolute Eosinophils 0.2, Absolute Basophils 0 Assessment/Plan Assessment: 51-year-old male with past medical history of COPD, hypertension, traumatic brain injury, diabetes, congestive heart failure, obstructive sleep apnea on CPAP came for a and swelling of his great toe swelling for the past 1 week. Patient found to have right great toe osteomyelitis and admitted in general medical floor for further evaluation and management. Assessment and plan Right great toe distal phalanx suspicion for osteomyelitis. * Patient had I&D with bone biopsy. Patient is on Unasyn 3 g IV every 6 [day 5 ]. Patient had an ultrasound arterial Doppler of his right leg which showed peripheral vascular disease, and a CT runoff was done which was negative for any occlusion of his vessels. Patient has bilateral pitting pedal edema. Bilateral lower extremity pulses felt. Patient had I&D and closure. Plan to discharge to home with home health services today. * Diabetes-sliding scale NovoLog insulin. * Patient endorses history of CHF though his ECHO is negative [EF more than 65% with no diastolic/systolic heart failure]. He was never been evaluated by social work program coordinator for the same. I Assume this Lasix was started in view of bilateral pedal edema. Patient needs further evaluation by social work program coordinator as outpatient. * COPD/AYLEEN-TRC nebulization and continue using CPAP at night. We will continue all his home medication except Lasix. * Code-full code * Diet-carbohydrate diet * DVT prophylaxis-subcutaneous heparin Problem List: 1. Osteomyelitis Pain Ratin Pain Location: none Pain Goal: Remain pain free Pain Plan: Tylenol Tomorrow's Labs & Rationales: None Zaid France 05/17/17 1513: Attending MD Review Statement Attending Statement Attending MD Statement: examined this patient, discuss w/resident/PA/ANIMAL [employer] CODE ENFORCEMENT OFFICER, agreed w/resident/PA/ANIMAL [employer] CODE ENFORCEMENT OFFICER, discussed with family, reviewed EMR data (avail), discussed with nursing, discussed with case mgmt, reviewed images, amended to note
[2017-05-17 07:47] VITALS: BP 116/70
--- NOTE | 2017-05-17 07:56 | Patient Discharge Instructions ---
Discharge Instructions General Discharge Information You were seen/treated for: Right great toe osteomyelitis Watch for these problems: In case of pain in your right great toe, weakness, numbness, tingling sensation, shortness of breath, chest pain please go to nearest emergency room Special Instructions: His follow-up with your primary care provider within 1-2 weeks of discharge Please follow-up with Dr. Dee at wound care in 1 week. Diet Continue normal diet: No Recommended Diet: Diabetic Activity Full Activity/No Limits: No Activity Self Limited: Yes Acute Coronary Syndrome Inclusion Criteria At DC or during hospital stay patient has or had the following: ACS DIAGNOSIS No Discharge Core Measures Meds if any: Prescribed or Continued at Discharge Meds if any: NOT Prescribed or Continued at Discharge Congestive Heart Failure Inclusion Criteria At DC or during hospital stay patient has or had the following: CHF DIAGNOSIS No Discharge Core Measures Meds if any: Prescribed or Continued at Discharge Meds if any: NOT Prescribed or Continued at Discharge Cerebrovascular accident Inclusion Criteria At DC or during hospital stay patient has or had the following: CVA/TIA Diagnosis No Discharge Core Measures Meds if any: Prescribed or Continued at Discharge Meds if any: NOT Prescribed or Continued at Discharge Venous thromboembolism Inclusion Criteria VTE Diagnosis No VTE Type NONE VTE Confirmed by (Test) NONE Discharge Core Measures - Per Current guidelines, there needs to be overlap - treatment for the first 5 days of Warfarin therapy. - If discharged on Warfarin prior to 5 days of - overlap therapy, the patient will need to be - assessed for post discharge needs including - *Post discharge parental anticoagulation - *Warfarin and/or parental anticoagulation education - *Follow up date to check INR post discharge At least 5 days overlap therapy as Inpatient No Meds if any: Prescribed or Continued at Discharge Note: Overlap Therapy is Warfarin and Anticoagulant Meds if any: NOT Prescribed or Continued at Discharge
[2017-05-17] MEDS ORDERED: AMOX-CLAV 875-1 EACH PO ×2 (07:59→09:56)
[2017-05-17 08:15] LABS: ABSOLUTE BASOPHIL COUNT 0 /CUMM (0.0-0.2); ABSOLUTE EOSINOPHIL COUNT 0.2 /CUMM (0.0-0.7); ABSOLUTE GRANULOCYTE CT 4.9 /CUMM (1.4-6.5); ABSOLUTE MONOCYTE COUNT 0.4 /CUMM (0.10-0.60); BASOPHIL % 0.5 % (0.0-2.0); GRANULOCYTE % 64.4 % (42.2-75.2); MEAN CORPUSCULAR HGB 30.8 PG (27.0-31.0); MEAN CORPUSCULAR HGB CONC 33.5 G/DL (33.0-37.0); MEAN PLATELET VOLUME 9.6 FL (7.4-10.4); PLATELET COUNT 187 /CUMM (130-400); RBC DISTRIBUTION WIDTH 13.7 % (11.5-14.5); RED BLOOD CELL CT 4.14 /CUMM (4.70-6.10); WHITE BLOOD CELL COUNT 7.6 /CUMM (4.8-10.8)
--- NOTE | 2017-05-17 09:40 | Discharge Summary ---
Visit Information Visit Dates Admission Date: 05/10/17 Discharge Date: 05/17/17 Hospital Course Course Attending Physician: Zaid France MD Primary Care Physician: Nayeli ADAMS,Raleigh Duncan Hospital Course: 51-year-old male with past medical history of COPD, hypertension, traumatic brain injury, diabetes, congestive heart failure, obstructive sleep apnea on CPAP came for a and swelling of his great toe swelling for the past 1 week. Patient was in usual state of health until a week ago, found to have swelling of his right great toe with no pain. 2 days ago patient felt moderate to severe pain in his right great toe. Patient went to [facility] for the same but due to increased wait time in the emergency room he left medical advice. Not sure if he received any antibiotics during the ER visit. Today patient continued having pain in his right great toe and eventually decided to come to the emergency room. During the time of interview he was irritated that he was frequently interviewed regarding his current situation. He denied trauma to his legs, numbness, tingling sensation, decreased sensation, bilateral leg pain, shortness of breath, chest pain. Patient uses Advair for his COPD. Patient has never seen a photographer apprentice lithographic/project management consultant for his diabetes. Patient lives alone and uses cane at home. Hospital course Patient admitted for right great toe distal phalanx osteomyelitis. Patient was started with Unasyn and was seen by podiatry, underwent initially a bone biopsy followed by incision and drainage and eventually closure on the day prior to discharge. Postoperative period Uneventful. Patient blood culture grew staph coagulase negative which is most likely contaminant. Patient bone biopsy grew Proteus/enterococcus staph/staph aureus hence we continued the current antibiotics and on the day of discharge patient was switched to oral antibiotics Augmentin with follow-up with podiatry within a week. he was also given surgical shoes to be used on his right foot. Patient was counseled enough by our medical team regarding diet, exercise. During the same admission patient had a right lower extremity arterial ultrasound to rule out gangrene, the ultrasound showed that the peroneal artery couldn't be visualized ends CTA runoff was done which was normal. Lower extremity venous ultrasound No evidence of deep venous thrombosis involving the lower extremity from the popliteal vein upwards. Foot x-ray May 10 Soft tissue swelling and ulceration of the great toe. No radiographic findings of underlying osteomyelitis. Consider correlation with MRI of the foot with and without contrast for additional sensitivity and specificity if warranted. Foot MRI The 1st distal phalanx is diffusely edematous, the majority of which is likely reactive. Osteomyelitis is suspected at the plantar aspect of the tuft. Ultrasound right leg arterial Doppler Doppler imaging findings suggest presence of peripheral vascular disease below level of the knee, and the peroneal artery is not identified (might be occluded). For a more complete anatomic assessment of the peripheral vessels, CT angiography-runoff examination could be performed. Also, in order to further evaluate the severity of peripheral vascular disease, NNAMDI measurements and pulse volume recordings may be obtained at a dedicated vascular lab. CTA runoff 1. The infrarenal abdominal aorta and deep arteries of the pelvis are widely patent with the exception of the right common iliac artery which demonstrates mild stenosis. 2. Bilateral femoral and popliteal arteries are widely patent. Normal three-vessel runoff of both legs. 3. Subcutaneous edema of the soft tissues of both lower extremities (right worse than left), particularly the distal calf and foot. 4. Limited evaluation of the abdomen and pelvis secondary to artifact from patient body habitus and left hip hardware. 5. Mildly enlarged right inguinal lymph nodes, nonspecific. These may be reactive. Clinical correlation recommended. X-ray foot May 17 Status post amputation to the first digit with expected soft tissue swelling and subcutaneous gas present. Allergies: Coded Allergies: No Known Allergies (05/10/17) Disposition Summary Disposition Principal Diagnosis: Right great toe osteomyelitis Additional Diagnosis: Diabetes Discharge Disposition: home health services Discharge Instructions General Discharge Information Code Status: Full Code Patient's Diet: Diabetic diet Patient's Activity: Heel touch down weightbearing Follow-Up Instructions/Appts: Please follow-up with your primary care provider and podiatry within 1 week of discharge. Medications at Discharge Discharge Medications: Continue taking these medications: Metformin HCl (Glucophage) 1,000 MG TABLET 1 Tablet ORAL TWICE DAILY Comments: NOT GIVEN WHILE IN HOSPITAL. RECEIVED NOVOLOG INSULIN WHILE IN HOSPITAL Atorvastatin Calcium (Atorvastatin Calcium) 80 MG TABLET 1 Tablet ORAL DAILY Comments: Last Taken: 05/16/17 Time: 4:17 pm Furosemide (Lasix) 40 MG TABLET 1 Tablet ORAL DAILY Comments: Last Taken: 05/17/17 Time: 7:47 am Potassium Chloride (Klor-Con 10) 10 MEQ TABLET.ER 1 Tablet ORAL DAILY Comments: NOT GIVEN WHILE IN HOSPITAL Lisinopril (Prinivil) 20 MG TABLET 1 Tablet ORAL DAILY Comments: Last Taken: 05/17/17 Time: 7:47 am Sertraline HCl (Sertraline HCl) 50 MG TABLET 1 Tablet ORAL DAILY Comments: Last Taken: 05/17/17 Time: 7:47 am Aspirin (Aspirin*) 81 MG TAB.CHEW 1 Tablet ORAL DAILY Comments: Last Taken: 05/17/17 Time: 7:47 am Fluticasone/Salmeterol (Advair 250-50 Diskus) 1 EACH BLST.W.DEV 1 Puff Inhale through mouth TWICE DAILY Comments: NOT GIVEN WHILE IN HOSPITAL. RECEIVED SYMBICORT INH WHILE IN HOSPITAL Insulin Glargine,Hum.rec.anlog (Lantus Solostar) 100 UNIT/ML (3 ML) INSULN.PEN 50 Units SUB-Q EVERY 12 HOURS Days = 30 Comments: LEVEMIR GIVEN WHILE IN HOSPITAL Start taking the following new medications: Amoxicillin/Clavulanate Potass (Amox-Clav 875-125 MG Tablet) 875 MG-125 MG TABLET 875 Milligram ORAL EVERY 12 HOURS Qty = 11 No Refills Instructions: . Comments: Last Taken: 05/17/17 Time: 7:47 am Copies To: Nayeli ADAMS,Raleigh Duncan
== END 2017-05-17 10:04 | disposition home health service (06) | DRG 617 ==
LOC: ERH 12:05 → ERHI 16:55 → 2NA 16:55 → ENRESERV 17:21 → ENTRNSPT 18:27 → EDTRNSPT 18:57 → EDTRNSPTSTS 18:57 → 2NA 19:03 → CMPTRNSPT 19:19 → 2NA 05-11 08:02 → ENTRNSPT 05-11 18:11 → CMPTRNSPT 05-11 18:39 → ENTRNSPT 05-16 11:09 → EDTRNSPTSTS 05-16 11:23 → EDTRNSPT 05-16 11:23 → CMPTRNSPT 05-16 11:54 → ENPENDDIS 05-17 09:41 → ENTRNSPT 05-17 09:53 → EDTRNSPT 05-17 09:57 → EDTRNSPTSTS 05-17 09:57 → 2NA 05-17 10:04 → CMPTRNSPT 05-17 10:23
PROVIDERS: Internal Medicine Adolescent Medicine; Physician Assistant Medical; Student in an Organized Health Care Education/Training Program
PROC: 0Y6P0Z3 Detachment at Right 1st Toe, Low, Open Approach (ICD-10-PCS; principal; 2017-05-11)
PROC: 0Y6P0Z0 Detachment at Right 1st Toe, Complete, Open Approach (ICD-10-PCS; 2017-05-16)
PROC: 0HXMXZZ Transfer Right Foot Skin, External Approach (ICD-10-PCS; 2017-05-16)
DX: E11.621 Type 2 diabetes mellitus with foot ulcer (principal); M86.171 Other acute osteomyelitis, right ankle and foot; L03.116 Cellulitis of left lower limb; E11.65 Type 2 diabetes mellitus with hyperglycemia; J44.9 Chronic obstructive pulmonary disease, unspecified; G47.33 Obstructive sleep apnea (adult) (pediatric); Z87.820 Personal history of traumatic brain injury; I87.8 Other specified disorders of veins; Z79.84 Long term (current) use of oral hypoglycemic drugs; Z91.19 Patient's noncompliance with other medical treatment and regimen; I10 Essential (primary) hypertension; Z79.82 Long term (current) use of aspirin; Z79.4 Long term (current) use of insulin; Z79.51 Long term (current) use of inhaled steroids; E78.5 Hyperlipidemia, unspecified; Z96.653 Presence of artificial knee joint, bilateral; Z96.642 Presence of left artificial hip joint; Z96.7 Presence of other bone and tendon implants; F32.9 Major depressive disorder, single episode, unspecified; F17.200 Nicotine dependence, unspecified, uncomplicated; E11.69 Type 2 diabetes mellitus with other specified complication; B95.61 Methicillin susceptible Staphylococcus aureus infection as the cause of diseases classified elsewhere; B95.2 Enterococcus as the cause of diseases classified elsewhere; B95.4 Other streptococcus as the cause of diseases classified elsewhere; B96.4 Proteus (mirabilis) (morganii) as the cause of diseases classified elsewhere
CPT/HCPCS: 2NASP; 75657; 87070; 87075; 87184; 36415; 36592; 73630-RT; 82436; 87040; 87071; 87147; 88305; 93005; 93010; 96361; 96365; 97116-GO; 97161-GP; J0131; J1644; J1815; J2001; J3490; J7042